=== PATIENT | female | born 1980 | race Caucasian/White ===

== ENCOUNTER 2017-10-10 13:00 | Outpatient (RCR) | payer OTHER, MEDICAID, SELFPAY ==
--- NOTE | 2017-09-03 15:15 | PT.OTN ---
On September 03, 2017 our therapy services consisting of Speech, Occupational, and Physical therapy transitioned from [employer] electronic documentation system to a new [employer] electronic system. All documentation prior to September 03 can be found under [employer] saved data. From September 03 forward, all medical record documentation will be in [employer]1.
--- NOTE | 2017-09-03 15:43 | PT.OTN ---
Physical Therapy Treatment Note PT-OP-C Subjective Start: 09/03/17 15:25 Freq: Status: Active Protocol: Activity Type Activity Date Activity User E-Sign Co-Sign Detail Recorded Client Recorded Date Recorded By Document 09/03/17 15:26 [facility] [email or web address] 09/03/17 15:42 [facility] 09/03/17 15:26 OP-PT Subjective [Patient Comments] -Patient Comments pain is rated 3 /10 now -Patient Reported Progress Improving PT-OP-Q Treatments Start: 09/03/17 15:25 Freq: Status: Active Protocol: Activity Type Activity Date Activity User E-Sign Co-Sign Detail Recorded Client Recorded Date Recorded By Document 09/03/17 15:26 [facility] [email or web address] 09/03/17 15:42 [facility] 09/03/17 15:26 Cardio Equipment [Upper Body Ergometer (UBE)] -Duration (Minutes) 5 Therapeutic Exercises [Supine Exercises] 1 -Supine Exercise Name hamstring and hip flexor stretch -Side bilateral -Reps/Minutes hold 1-2 minutes 1 rep each 2 -Supine Exercise Name AAROM shoulder flexion, ER -Side right [Sitting Exercises] 1 -Sitting Exercise Name seated shoulder marielos AAROM -Side right -Reps/Minutes 4 minutes [Standing Exercises] 2 -Standing Exercise Name standing bicep curls -Side bilateral -Reps/Minutes 3 # 2 sets of 10 reps 1 -Standing Exercise Name standing AAROM abduction, IR -Reps/Minutes 2 sets of 10 reps [Other Exercises] 1 -Other Exercise Name standing rows and lat pull down -Side right -Reps/Minutes 3 sets of 10 reps Manual Therapy Treatment [Manual Techniques] 1 -Type manual right shoulder ROM into flexion, DI/D2, IR/ER -Body Position Supine Self-Care/Home Management Treatment [Education] -Patient Education Home Exercise Program Posture PT-OP-R Modalities Start: 09/03/17 15:25 Freq: Status: Active Protocol: Activity Type Activity Date Activity User E-Sign Co-Sign Detail Recorded Client Recorded Date Recorded By Document 09/03/17 15:26 [facility] [email or web address] 09/03/17 15:42 [facility] 09/03/17 15:26 Hot Pack/Cold Pack [Treatment] Hot Pack -Patient Position Supine -Treatment Duration (minutes) 10 -Patient Tolerance Good -Comments heat pack to low back and right shoulder PT-OP-T Assessment and Plan Start: 09/03/17 15:25 Freq: Status: Active Protocol: Activity Type Activity Date Activity User E-Sign Co-Sign Detail Recorded Client Recorded Date Recorded By Document 09/03/17 15:26 [facility] [email or web address] 09/03/17 15:42 [facility] 09/03/17 15:26 Physical Therapy Assessment [Rehab Potential] -Rehabilitation Potential Excellent [Impairments] -Impairments Pain Posture ROM Strength [Progress Towards Goals] -Progress Towards Goals Progressing Toward Goals -Progress Comments excellent progress towards goals, pain levels decreased to 3/ 10 (was 8/10) and ROM and strength improvements [Assessment Summary] -Assessment Summer is making great progress in PT. Her shoulder ROM is greatly improved and today shoulder flexion was to 155 deg with AAROM, IR AAROM was to shoulder blade and PROM ER was to 45 deg. She has been able to tolerate bicep curls and theraband for scapula retraction. Physical Therapy Plan [Frequency and Duration] -Frequency of Treatment 2x/Week [Therapeutic Interventions] -Therapeutic Interventions Home Exercise Program Joint Mobilizations Manual Therapy Neuromuscular Re-education Patient/ Caregiver Education Self-Care/Home Management Soft Tissue Mobilization Therapeutic Exercises -Modalities Hot Packs Ultrasound [Next Visit Focus/Plan] -Next Visit Plan begin increasing strength and adding in resistance to IR/ER as well as flexibility exercises for the anterior chest Current Diagnoses Pain in right shoulder (09/03/17) Calcific tendinitis of right shoulder (09/03/17) Impingement syndrome of right shoulder (09/03/17)
--- NOTE | 2017-09-05 15:43 | PT.OTN ---
Current Diagnoses Pain in right shoulder (09/05/17) Calcific tendinitis of right shoulder (09/05/17) Impingement syndrome of right shoulder (09/05/17) Physical Therapy Treatment Note PT-OP-A Visit Information Start: 09/05/17 15:41 Freq: Status: Active Protocol: Activity Type Activity Date Activity User E-Sign Co-Sign Detail Recorded Client Recorded Date Recorded By Document 09/05/17 15:42 [facility] [email or web address] 09/05/17 15:43 [facility] 09/05/17 15:42 Out-Patient Physical Therapy Visit Information [Visit Information] -Visit Type Treatment Note -Visit Start Time 01:00 -Visit Stop Time 01:45 -Total Visit Minutes 45 -Visit Number 4 -Number of ACCOUNTING/FINANCE TUTOR Visits 0 PT-OP-C Subjective Start: 09/03/17 15:25 Freq: Status: Active Protocol: Activity Type Activity Date Activity User E-Sign Co-Sign Detail Recorded Client Recorded Date Recorded By Document 09/05/17 01:00 [facility] [email or web address] 09/05/17 15:41 [facility] 09/05/17 01:00 OP-PT Subjective [Patient Comments] -Patient Comments Summer reports pain continues to decrease in her shoulder and she is hoping to start increasing her strength now -Patient Reported Progress Improving PT-OP-Q Treatments Start: 09/03/17 15:25 Freq: Status: Active Protocol: Activity Type Activity Date Activity User E-Sign Co-Sign Detail Recorded Client Recorded Date Recorded By Document 09/05/17 01:00 [facility] [email or web address] 09/05/17 15:41 [facility] 09/05/17 01:00 Cardio Equipment [Upper Body Ergometer (UBE)] -Duration (Minutes) 5 Therapeutic Exercises [Supine Exercises] 1 -Supine Exercise Name hamstring and hip flexor stretch -Side bilateral -Reps/Minutes hold 1-2 minutes 1 rep each 2 -Supine Exercise Name AAROM shoulder flexion, ER -Side right [Sitting Exercises] 1 -Sitting Exercise Name seated shoulder marielos AAROM -Side right -Reps/Minutes 4 minutes [Standing Exercises] 2 -Standing Exercise Name standing bicep curls -Side bilateral -Reps/Minutes 3 # 2 sets of 10 reps 1 -Standing Exercise Name standing AAROM abduction, IR -Reps/Minutes 2 sets of 10 reps [Other Exercises] 2 -Other Exercise Name standing shoulder ER -Side right -Resistance level 1 theraband -Reps/Minutes 3 sets of 10 reps 1 -Other Exercise Name standing rows and lat pull down -Side right -Reps/Minutes 3 sets of 10 reps Manual Therapy Treatment [Manual Techniques] 1 -Type manual right shoulder ROM into flexion, DI/D2, IR/ER -Body Position Supine Self-Care/Home Management Treatment [Education] -Patient Education Home Exercise Program Posture PT-OP-R Modalities Start: 09/03/17 15:25 Freq: Status: Active Protocol: Activity Type Activity Date Activity User E-Sign Co-Sign Detail Recorded Client Recorded Date Recorded By Document 09/05/17 01:00 [facility] [email or web address] 09/05/17 15:41 [facility] 09/05/17 01:00 Hot Pack/Cold Pack [Treatment] Hot Pack -Patient Position Supine -Treatment Duration (minutes) 10 -Patient Tolerance Good -Comments heat pack to low back and right shoulder PT-OP-T Assessment and Plan Start: 09/03/17 15:25 Freq: Status: Active Protocol: Activity Type Activity Date Activity User E-Sign Co-Sign Detail Recorded Client Recorded Date Recorded By Document 09/05/17 01:00 [facility] [email or web address] 09/05/17 15:41 [facility] 09/05/17 01:00 Physical Therapy Assessment [Rehab Potential] -Rehabilitation Potential Excellent [Impairments] -Impairments Pain Posture ROM Strength [Progress Towards Goals] -Progress Towards Goals Progressing Toward Goals -Progress Comments excellent progress towards goals, pain levels decreased to 3/ 10 (was 8/10) and ROM and strength improvements [Assessment Summary] -Assessment Summer is making great progress in PT. Her shoulder ROM is greatly improved and today shoulder flexion was to 160 deg with AAROM, IR AAROM was to shoulder blade and PROM ER was to 45 deg. She has been able to tolerate bicep curls and theraband for scapula retraction. We added in shoulder ER today with theraband and this was tolerated well Physical Therapy Plan [Frequency and Duration] -Frequency of Treatment 2x/Week [Therapeutic Interventions] -Therapeutic Interventions Home Exercise Program Joint Mobilizations Manual Therapy Neuromuscular Re-education Patient/ Caregiver Education Self-Care/Home Management Soft Tissue Mobilization Therapeutic Exercises -Modalities Hot Packs Ultrasound [Next Visit Focus/Plan] -Next Visit Plan work on increasing strength and flexibility exercises for the anterior chest.
--- NOTE | 2017-09-10 14:26 | PT.OTN ---
Current Diagnoses Pain in right shoulder (09/10/17) Calcific tendinitis of right shoulder (09/10/17) Impingement syndrome of right shoulder (09/10/17) Physical Therapy Treatment Note PT-OP-A Visit Information Start: 09/05/17 15:41 Freq: Status: Active Protocol: Activity Type Activity Date Activity User E-Sign Co-Sign Detail Recorded Client Recorded Date Recorded By Document 09/10/17 14:15 [facility] [email or web address] 09/10/17 14:25 [facility] 09/10/17 14:15 Out-Patient Physical Therapy Visit Information [Visit Information] -Visit Type Treatment Note -Visit Start Time 01:00 -Visit Stop Time 01:45 -Total Visit Minutes 45 -Visit Number 5 -Number of [employer] Visits 0 PT-OP-C Subjective Start: 09/03/17 15:25 Freq: Status: Active Protocol: Activity Type Activity Date Activity User E-Sign Co-Sign Detail Recorded Client Recorded Date Recorded By Document 09/10/17 14:15 [facility] [email or web address] 09/10/17 14:25 [facility] 09/10/17 14:15 OP-PT Subjective [Patient Comments] -Patient Comments Summer reports her shoulder is doing better overall. She did sleep on it hard the past few nights and woke up in some pain -Patient Reported Progress Improving OP-PT Pain Assessment [Pain Assessment Grid] -Paper Pain Assessment Grid Completed 3 PT-OP-K Range of Motion Start: 09/03/17 15:25 Freq: Status: Active Protocol: Activity Type Activity Date Activity User E-Sign Co-Sign Detail Recorded Client Recorded Date Recorded By Document 09/10/17 14:15 [facility] [email or web address] 09/10/17 14:25 [facility] 09/10/17 14:15 Shoulder Goniometric Range of Motion [Shoulder] Measured in Degrees Right -Testing Position Sitting -Flexion 150 -Extension 10 -Abduction 110 -External Rotation at 45 degrees 45 Abduction -Internal Rotation 35 PT-OP-Q Treatments Start: 09/03/17 15:25 Freq: Status: Active Protocol: Activity Type Activity Date Activity User E-Sign Co-Sign Detail Recorded Client Recorded Date Recorded By Document 09/10/17 14:15 [facility] [email or web address] 09/10/17 14:25 [facility] 09/10/17 14:15 Cardio Equipment [Upper Body Ergometer (UBE)] -Duration (Minutes) 5 Therapeutic Exercises [Supine Exercises] 4 -Supine Exercise Name triceps skull crushers with bar only -Resistance bar only -Reps/Minutes 20 reps 3 -Supine Exercise Name T exercise with theraband -Equipment Used theraband -Reps/Minutes 3 sets of 10 reps 1 -Supine Exercise Name hamstring and hip flexor stretch -Side bilateral -Reps/Minutes hold 1-2 minutes 1 rep each 2 -Supine Exercise Name AAROM shoulder flexion, ER -Side right -Comments on half foam roll [Standing Exercises] 2 -Standing Exercise Name standing bicep curls -Side bilateral -Reps/Minutes 3 # 3 sets of 10 reps 1 -Standing Exercise Name standing AAROM abduction, IR -Reps/Minutes 2 sets of 10 reps [Other Exercises] 4 -Other Exercise Name quadraped opp arm lift 3 -Other Exercise Name quadraped cat cow and rock backs -Reps/Minutes 10 2 -Other Exercise Name standing shoulder ER -Side right -Resistance level 1 theraband -Reps/Minutes 3 sets of 10 reps 1 -Other Exercise Name standing rows and lat pull down -Side right -Reps/Minutes 3 sets of 10 reps Manual Therapy Treatment [Soft Tissue Mobilization] 1 -Body Location right biceps, deltoid, pectoralis -Mobilization Type Myofascial Release Rolling -Intensity/Depth Moderate -Body Position Supine [Manual Techniques] 1 -Type manual right shoulder ROM into flexion, DI/D2, IR/ER -Body Position Supine Self-Care/Home Management Treatment [Education] -Patient Education Home Exercise Program Posture PT-OP-R Modalities Start: 09/03/17 15:25 Freq: Status: Active Protocol: Activity Type Activity Date Activity User E-Sign Co-Sign Detail Recorded Client Recorded Date Recorded By Document 09/05/17 01:00 [facility] [email or web address] 09/05/17 15:41 [facility] 09/05/17 01:00 Hot Pack/Cold Pack [Treatment] Hot Pack -Patient Position Supine -Treatment Duration (minutes) 10 -Patient Tolerance Good -Comments heat pack to low back and right shoulder PT-OP-T Assessment and Plan Start: 09/03/17 15:25 Freq: Status: Active Protocol: Activity Type Activity Date Activity User E-Sign Co-Sign Detail Recorded Client Recorded Date Recorded By Document 09/10/17 14:15 [facility] [email or web address] 09/10/17 14:25 [facility] 09/10/17 14:15 Physical Therapy Assessment [Assessment Summary] -Assessment Milka continues to make good progress with PT. Her ROM into shoulder ER has improved greately and I have had her begin moving her shoulder into more abduction with this. Pain levels continue to decrease and Milka is tolerating resistance for Rotator cuff strengthening well. Physical Therapy Plan [Therapeutic Interventions] -Therapeutic Interventions Home Exercise Program Joint Mobilizations Manual Therapy Neuromuscular Re-education Patient/ Caregiver Education Self-Care/Home Management Soft Tissue Mobilization Therapeutic Exercises [Next Visit Focus/Plan] -Next Visit Plan work on increasing strength and flexibility exercises for the anterior chest.
--- NOTE | 2017-09-17 17:13 | PT.OTN ---
Current Diagnoses Pain in right shoulder (09/17/17) Calcific tendinitis of right shoulder (09/17/17) Impingement syndrome of right shoulder (09/17/17) Physical Therapy Treatment Note PT-OP-A Visit Information Start: 09/05/17 15:41 Freq: Status: Active Protocol: Document 09/17/17 16:57 [facility] (Rec: 09/17/17 17:09 [facility] [email or web address]) Out-Patient Physical Therapy Visit Information Visit Information Visit Type Treatment Note Visit Start Time 13:00 Visit Stop Time 13:45 Total Visit Minutes 50 Visit Number 6 Number of [employer] Visits 0 PT-OP-C Subjective Start: 09/03/17 15:25 Freq: Status: Active Protocol: Document 09/17/17 16:57 [facility] (Rec: 09/17/17 17:09 [facility] [email or web address]) OP-PT Subjective Patient Comments Patient Comments shoulder is a little sore today but Summer reports her back is hurting her worse PT-OP-K Range of Motion Start: 09/03/17 15:25 Freq: Status: Active Protocol: Document 09/10/17 14:15 [facility] (Rec: 09/10/17 14:25 [facility] [email or web address]) Shoulder Goniometric Range of Motion Shoulder Measured in Degrees Right Testing Position Sitting Flexion 150 Extension 10 Abduction 110 External Rotation at 45 degrees 45 Abduction Internal Rotation 35 PT-OP-Q Treatments Start: 09/03/17 15:25 Freq: Status: Active Protocol: Document 09/17/17 16:57 [facility] (Rec: 09/17/17 17:09 [facility] [email or web address]) Therapeutic Exercises Supine Exercises 4 Supine Exercise Name triceps skull crushers with bar only Resistance 20# Reps/Minutes 20 reps 3 Supine Exercise Name T exercise with theraband Equipment Used theraband Reps/Minutes 3 sets of 10 reps 1 Supine Exercise Name hamstring and hip flexor stretch Side bilateral Reps/Minutes hold 1-2 minutes 1 rep each 2 Supine Exercise Name AAROM shoulder flexion, ER Side right Comments on half foam roll Sitting Exercises 2 Sitting Exercise Name seated rows and lat pull down with resistance Resistance 10 # pounds Reps/Minutes 3 sets of 10 1 Sitting Exercise Name seated shoulder marielos AAROM Side right Reps/Minutes 4 minutes Standing Exercises 2 Standing Exercise Name standing bicep curls Side bilateral Reps/Minutes 3 # 3 sets of 10 reps 1 Standing Exercise Name standing AAROM abduction, IR Reps/Minutes 2 sets of 10 reps Other Exercises 4 Other Exercise Name quadraped opp arm lift 3 Other Exercise Name quadraped cat cow and rock backs Reps/Minutes 10 2 Other Exercise Name standing shoulder ER Side right Resistance level 1 theraband Reps/Minutes 3 sets of 10 reps Manual Therapy Treatment Manual Techniques 2 Type manual right sacral mobilizations into counter nutation Comments sacral counter nutation stretch 1 Type manual right shoulder ROM into flexion, DI/D2, IR/ER Body Position Supine PT-OP-R Modalities Start: 09/03/17 15:25 Freq: Status: Active Protocol: Document 09/05/17 01:00 [facility] (Rec: 09/05/17 15:41 [facility] [email or web address]) Hot Pack/Cold Pack Treatment Hot Pack Patient Position Supine Treatment Duration (minutes) 10 Patient Tolerance Good Comments heat pack to low back and right shoulder PT-OP-T Assessment and Plan Start: 09/03/17 15:25 Freq: Status: Active Protocol: Document 09/17/17 17:11 [facility] (Rec: 09/17/17 17:12 [facility] [email or web address]) Physical Therapy Assessment Assessment Summary Assessment Shoulder ROM is nearly full with end range stretch of ER and abduction. Strength is improving and Summer is tolerating additional weights Physical Therapy Plan Frequency and Duration Frequency of Treatment 2x/Week Therapeutic Interventions Therapeutic Interventions Home Exercise Program Joint Mobilizations Manual Therapy Neuromuscular Re-education Patient/Caregiver Education Self-Care/Home Management Soft Tissue Mobilization Therapeutic Exercises Next Visit Focus/Plan Next Visit Plan work on increasing strength and flexibility exercises for the anterior chest.
--- NOTE | 2017-09-19 16:21 | PT.OTN ---
Current Diagnoses Pain in right shoulder (09/19/17) Calcific tendinitis of right shoulder (09/19/17) Impingement syndrome of right shoulder (09/19/17) Physical Therapy Treatment Note PT-OP-A Visit Information Start: 09/05/17 15:41 Freq: Status: Active Protocol: Document 09/19/17 16:15 [facility] (Rec: 09/19/17 16:21 [facility] [email or web address]) Out-Patient Physical Therapy Visit Information Visit Information Visit Type Treatment Note Visit Start Time 13:45 Visit Stop Time 14:15 Total Visit Minutes 45 Visit Number 7 Number of [employer] Visits 0 PT-OP-C Subjective Start: 09/03/17 15:25 Freq: Status: Active Protocol: Document 09/19/17 16:15 [facility] (Rec: 09/19/17 16:21 [facility] [email or web address]) OP-PT Subjective Patient Comments Patient Comments 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 PT-OP-K Range of Motion Start: 09/03/17 15:25 Freq: Status: Active Protocol: Document 09/19/17 16:15 [facility] (Rec: 09/19/17 16:21 [facility] [email or web address]) Shoulder Goniometric Range of Motion Shoulder Measured in Degrees Right Testing Position Sitting Flexion 160 Extension 10 Abduction 140 External Rotation at 45 degrees 45 Abduction Internal Rotation 30 PT-OP-Q Treatments Start: 09/03/17 15:25 Freq: Status: Active Protocol: Document 09/19/17 16:15 [facility] (Rec: 09/19/17 16:21 [facility] [email or web address]) Cardio Equipment Upper Body Ergometer (UBE) Duration (Minutes) 5 RPM 120 Therapeutic Exercises Supine Exercises 3 Supine Exercise Name T exercise with theraband Equipment Used theraband Reps/Minutes 3 sets of 10 reps 1 Supine Exercise Name hamstring and hip flexor stretch Side bilateral Reps/Minutes hold 1-2 minutes 1 rep each 2 Supine Exercise Name AAROM shoulder flexion, ER Side right Comments on half foam roll Sitting Exercises 2 Sitting Exercise Name seated rows and lat pull down with resistance Resistance 10 # pounds Reps/Minutes 3 sets of 10 1 Sitting Exercise Name seated shoulder marielos AAROM Side right Reps/Minutes 4 minutes Other Exercises 3 Other Exercise Name quadraped cat cow and rock backs Reps/Minutes 10 Manual Therapy Treatment Manual Techniques 2 Type manual right sacral mobilizations into counter nutation Comments sacral counter nutation stretch PT-OP-R Modalities Start: 09/03/17 15:25 Freq: Status: Active Protocol: Document 09/05/17 01:00 [facility] (Rec: 09/05/17 15:41 [facility] [email or web address]) Hot Pack/Cold Pack Treatment Hot Pack Patient Position Supine Treatment Duration (minutes) 10 Patient Tolerance Good Comments heat pack to low back and right shoulder PT-OP-T Assessment and Plan Start: 09/03/17 15:25 Freq: Status: Active Protocol: Document 09/19/17 16:15 [facility] (Rec: 09/19/17 16:21 [facility] [email or web address]) Physical Therapy Plan Frequency and Duration Frequency of Treatment 2x/Week Therapeutic Interventions Therapeutic Interventions Home Exercise Program Joint Mobilizations Manual Therapy Neuromuscular Re-education Patient/Caregiver Education Self-Care/Home Management Soft Tissue Mobilization Therapeutic Exercises Next Visit Focus/Plan Next Visit Plan work on increasing strength and flexibility exercises for the anterior chest.
--- NOTE | 2017-09-27 06:25 | PT.OTN ---
Current Diagnoses Pain in right shoulder (09/26/17) Calcific tendinitis of right shoulder (09/26/17) Impingement syndrome of right shoulder (09/26/17) Physical Therapy Treatment Note PT-OP-A Visit Information Start: 09/05/17 15:41 Freq: Status: Active Protocol: Document 09/27/17 06:18 [facility] (Rec: 09/27/17 06:25 [facility] [email or web address]) Out-Patient Physical Therapy Visit Information Visit Information Visit Type Treatment Note Visit Start Time 13:00 Visit Stop Time 13:45 Total Visit Minutes 45 Visit Number 8 Number of FOREIGN FOOD COOK SPECIALTY Visits 0 PT-OP-C Subjective Start: 09/03/17 15:25 Freq: Status: Active Protocol: Document 09/27/17 06:18 [facility] (Rec: 09/27/17 06:25 [facility] [email or web address]) OP-PT Subjective Patient Comments Patient Comments Summer reports her shoulder is doing much better overall but her low back is sore today PT-OP-K Range of Motion Start: 09/03/17 15:25 Freq: Status: Active Protocol: Document 09/19/17 16:15 [facility] (Rec: 09/19/17 16:21 [facility] [email or web address]) Shoulder Goniometric Range of Motion Shoulder Measured in Degrees Right Testing Position Sitting Flexion 160 Extension 10 Abduction 140 External Rotation at 45 degrees 45 Abduction Internal Rotation 30 PT-OP-Q Treatments Start: 09/03/17 15:25 Freq: Status: Active Protocol: Document 09/27/17 06:18 [facility] (Rec: 09/27/17 06:25 [facility] [email or web address]) Cardio Equipment Upper Body Ergometer (UBE) Duration (Minutes) 5 RPM 120 Therapeutic Exercises Supine Exercises 4 Supine Exercise Name triceps skull crushers with bar only Resistance 20# Reps/Minutes 20 reps 3 Supine Exercise Name T exercise with theraband Equipment Used theraband Reps/Minutes 3 sets of 10 reps 1 Supine Exercise Name hamstring and hip flexor stretch Side bilateral Reps/Minutes hold 1-2 minutes 1 rep each 2 Supine Exercise Name AAROM shoulder flexion, ER Side right Comments on half foam roll Sitting Exercises 2 Sitting Exercise Name seated rows and lat pull down with resistance Resistance 10 # pounds Reps/Minutes 3 sets of 10 1 Sitting Exercise Name seated shoulder marielos AAROM Side right Reps/Minutes 4 minutes Other Exercises 5 Other Exercise Name aaliyah pose Reps/Minutes hold 1-2 minutes 4 Other Exercise Name quadraped opp arm lift 3 Other Exercise Name quadraped cat cow and rock backs Reps/Minutes 10 PT-OP-R Modalities Start: 09/03/17 15:25 Freq: Status: Active Protocol: Document 09/05/17 01:00 [facility] (Rec: 09/05/17 15:41 [facility] [email or web address]) Hot Pack/Cold Pack Treatment Hot Pack Patient Position Supine Treatment Duration (minutes) 10 Patient Tolerance Good Comments heat pack to low back and right shoulder PT-OP-T Assessment and Plan Start: 09/03/17 15:25 Freq: Status: Active Protocol: Document 09/27/17 06:18 [facility] (Rec: 09/27/17 06:25 [facility] [email or web address]) Physical Therapy Assessment Assessment Summary Assessment Shoulder ROM and strength much improved. Summer is complaining of back pain that she feels is worse than her shoulder at this time Physical Therapy Plan Frequency and Duration Frequency of Treatment 2x/Week Therapeutic Interventions Therapeutic Interventions Home Exercise Program Joint Mobilizations Manual Therapy Neuromuscular Re-education Patient/Caregiver Education Self-Care/Home Management Soft Tissue Mobilization Therapeutic Exercises Next Visit Focus/Plan Next Visit Plan reassess shoulder strength and send [place] to MD Please Sign and Return: I have reviewed this Plan of Care and certify that the skilled therapy services above are required to meet the patient???s needs. Physician Signature Date Printed Name and Credentials Clinical Instructor Signature Printed Name and Credentials
--- NOTE | 2017-10-08 17:36 | PT.OTN ---
Current Diagnoses Pain in right shoulder (10/08/17) Calcific tendinitis of right shoulder (10/08/17) Impingement syndrome of right shoulder (10/08/17) Physical Therapy Treatment Note PT-OP-A Visit Information Start: 09/05/17 15:41 Freq: Status: Active Protocol: Document 10/08/17 17:31 [facility] (Rec: 10/08/17 17:36 [facility] [email or web address]) Out-Patient Physical Therapy Visit Information Visit Information Visit Type Treatment Note Visit Start Time 13:00 Visit Stop Time 13:45 Total Visit Minutes 45 Visit Number 9 Number of TEXTILE TECHNOLOGIST Visits 0 PT-OP-C Subjective Start: 09/03/17 15:25 Freq: Status: Active Protocol: Document 10/08/17 17:31 [facility] (Rec: 10/08/17 17:36 [facility] [email or web address]) OP-PT Subjective Patient Comments Patient Comments Overall the shoulder is doing much better and ROM has improved. Discomfort in the AM at times if I have slept on my shoulder all night PT-OP-K Range of Motion Start: 09/03/17 15:25 Freq: Status: Active Protocol: Document 09/19/17 16:15 [facility] (Rec: 09/19/17 16:21 [facility] [email or web address]) Shoulder Goniometric Range of Motion Shoulder Measured in Degrees Right Testing Position Sitting Flexion 160 Extension 10 Abduction 140 External Rotation at 45 degrees 45 Abduction Internal Rotation 30 PT-OP-Q Treatments Start: 09/03/17 15:25 Freq: Status: Active Protocol: Document 10/08/17 17:31 [facility] (Rec: 10/08/17 17:36 [facility] [email or web address]) Therapeutic Exercises Supine Exercises 4 Supine Exercise Name triceps kick backs Resistance 5 # Reps/Minutes 20 reps 3 Supine Exercise Name T exercise with theraband Equipment Used theraband Reps/Minutes 3 sets of 10 reps 1 Supine Exercise Name hamstring and hip flexor stretch Side bilateral Reps/Minutes hold 1-2 minutes 1 rep each 2 Supine Exercise Name AAROM shoulder flexion, ER Side right Comments on half foam roll Prone Exercises 1 Prone Exercise Name prone shoulder horizontal abduction Reps/Minutes 3 sets of 10 reps Sidelying Exercises 1 Sidelying Exercise Name sidelying ER Resistance 3# Reps/Minutes 3 sets 10 reps Sitting Exercises 2 Sitting Exercise Name seated rows and lat pull down with resistance Resistance 10 # pounds Reps/Minutes 3 sets of 10 1 Sitting Exercise Name seated shoulder marielos AAROM Side right Reps/Minutes 4 minutes Manual Therapy Treatment Manual Techniques 2 Type manual right sacral mobilizations into counter nutation Comments sacral counter nutation stretch 1 Type manual right shoulder ROM into flexion, DI/D2, IR/ER Body Position Supine PT-OP-R Modalities Start: 09/03/17 15:25 Freq: Status: Active Protocol: Document 09/05/17 01:00 [facility] (Rec: 09/05/17 15:41 [facility] [email or web address]) Hot Pack/Cold Pack Treatment Hot Pack Patient Position Supine Treatment Duration (minutes) 10 Patient Tolerance Good Comments heat pack to low back and right shoulder PT-OP-T Assessment and Plan Start: 09/03/17 15:25 Freq: Status: Active Protocol: Document 10/08/17 17:31 [facility] (Rec: 10/08/17 17:36 [facility] [email or web address]) Physical Therapy Assessment Assessment Summary Assessment full ROM of the right shoulder today and good tolerance of ther ex for shoulder stabilization Physical Therapy Plan Frequency and Duration Frequency of Treatment 2x/Week Therapeutic Interventions Therapeutic Interventions Home Exercise Program Joint Mobilizations Manual Therapy Neuromuscular Re-education Patient/Caregiver Education Self-Care/Home Management Soft Tissue Mobilization Therapeutic Exercises Next Visit Focus/Plan Next Visit Plan send ME to MD regarding shoulder strength and improved ROM Please Sign and Return: I have reviewed this Plan of Care and certify that the skilled therapy services above are required to meet the patient?s needs. Physician Signature Date Printed Name and Credentials Clinical Instructor Signature Printed Name and Credentials
--- NOTE | 2017-10-13 20:44 | PT.OPPN ---
Current Diagnoses Pain in right shoulder (10/10/17) Calcific tendinitis of right shoulder (10/10/17) Impingement syndrome of right shoulder (10/10/17) Physical Therapy Progress Note PT-OP-A Visit Information Start: 09/05/17 15:41 Freq: Status: Active Protocol: Document 10/10/17 13:00 [facility] (Rec: 10/13/17 20:40 [facility] [email or web address]) Out-Patient Physical Therapy Visit Information Visit Information Visit Type Progress Note Visit Start Time 13:00 Visit Stop Time 13:45 Total Visit Minutes 45 Visit Number 10 Number of SENIOR CUSTOMER SERVICE REPRESENTATIVE Visits 0 Evaluation Information Evaluation Date 08/20/17 PT-OP-C Subjective Start: 09/03/17 15:25 Freq: Status: Active Protocol: Document 10/10/17 13:00 [facility] (Rec: 10/13/17 20:40 [facility] [email or web address]) OP-PT Subjective Patient Comments Patient Comments Milka reports that overall her shoulder is doing much better and she is ready to begin working on her low back which is giving her more pain currently PT-OP-J Posture/Palpation/Skin Start: 10/13/17 20:41 Freq: Status: Active Protocol: Document 10/13/17 20:42 [facility] (Rec: 10/13/17 20:44 [facility] [email or web address]) Posture Evaluation Position Standing L-Spine Posture Increased Lordosis Pelvis Posture Anteriorly Tilted (R) Rotated Anterior (L) PSIS Posterior Weight Distribution Weight Shifted Right Palpation Assessment Location One Palpation Location Lumbar spine paraspinals and gluteal region Palpation Findings Soft Tissue Tightness Spasm Muscle Guarding Tenderness PT-OP-K Range of Motion Start: 09/03/17 15:25 Freq: Status: Active Protocol: Document 10/10/17 13:00 [facility] (Rec: 10/13/17 20:40 [facility] [email or web address]) Shoulder Goniometric Range of Motion Shoulder Measured in Degrees Right Testing Position Sitting Flexion 160 Extension 10 Abduction 150 External Rotation at 90 degrees 70 Abduction External Rotation at 45 degrees 60 Abduction Internal Rotation 55 PT-OP-M Strength Start: 10/13/17 20:41 Freq: Status: Active Protocol: Document 10/13/17 20:42 [facility] (Rec: 10/13/17 20:44 [facility] [email or web address]) Trunk Strength Trunk Manual Muscle Testing Testing Position Supine Flexion 3+ Fair+ Extension 3+ Fair+ Core Stabilization Poor core stabilization with + ASLR test bilaterally PT-OP-T Assessment and Plan Start: 09/03/17 15:25 Freq: Status: Active Protocol: Document 10/10/17 13:00 [facility] (Rec: 10/13/17 20:40 [facility] [email or web address]) Physical Therapy Assessment Goals Three Impairment Impaired posture with an increase in lumbar lordosis in standing Short Term Goal (STG) Milka will be educated in postural modifications to decrease the exaggerated lumbar lordosis she stands in and improve support of her lumbar spine STG Duration 6 weeks Two Impairment Decreased core strength and SI joint stabilization [facility]ci Goal (LTG) Milka is instructed in a home exercise program for low back stabilization and SI joint stabilization LTG Duration 8 weeks One Impairment low back pain rated 8/10 Pig Machine Operator Goal (LTG) Begin workin ike a low back stabilization program to minimize back pain LTG Duration 8 weeks Progress Towards Goals Progress Towards Goals Progressing Toward Goals Assessment Summary Assessment Milka has made great overall progress with her right shoulder with Physical therapy and surgery. She is close to having a full pain free ROM, her strength is improving and pain levels have decreased overall. She will be progressing to a home program for her shoulder. When Milka initially began therapy she brought in a referral for her shoulder and her back. Treatment has focused on her shoulder and will now progress to her lumbar spine under her primary care physician Andrea Cross. Physical Therapy Plan Frequency and Duration Frequency of Treatment 2x/Week Duration of Treatment 8 weeks Plan of Care Start Date 10/10/17 Plan of Care End Date 12/05/17 Therapeutic Interventions Therapeutic Interventions Home Exercise Program Joint Mobilizations Manual Therapy Neuromuscular Re-education Patient/Caregiver Education Self-Care/Home Management Soft Tissue Mobilization Therapeutic Exercises Modalities Cold Pack/Ice Massage Traction- Mechanical Next Visit Focus/Plan Next Visit Plan progress abdominal stabilization and postural modifications
--- NOTE | 2017-10-13 20:45 | PT.OPPOC ---
Current Diagnoses Pain in right shoulder (10/10/17) Calcific tendinitis of right shoulder (10/10/17) Impingement syndrome of right shoulder (10/10/17) Provider Visit Care Team Role Provider Type PHIL Luis Family Provider Non-Staff Primary Care Provider Specialty: Medical Address: [address], [id number] Email: Kody Newby Attending Provider Non-Staff Specialty: Medical Address: [address] [place] [address], [id number] Email: Plan Of Care PT-OP-T Assessment and Plan Start: 09/03/17 15:25 Freq: Status: Active Protocol: Document 10/10/17 13:00 [facility] (Rec: 10/13/17 20:40 [facility] [email or web address]) Physical Therapy Assessment Goals Three Impairment Impaired posture with an increase in lumbar lordosis in standing Short Term Goal (STG) Milka will be educated in postural modifications to decrease the exaggerated lumbar lordosis she stands in and improve support of her lumbar spine STG Duration 6 weeks Two Impairment Decreased core strength and SI joint stabilization Intermediate Goal (LTG) Milka is instructed in a home exercise program for low back stabilization and SI joint stabilization LTG Duration 8 weeks One Impairment low back pain rated 8/10 Finger Cobbler Goal (LTG) Begin workin ike a low back stabilization program to minimize back pain LTG Duration 8 weeks Progress Towards Goals Progress Towards Goals Progressing Toward Goals Assessment Summary Assessment Milka has made great overall progress with her right shoulder with Physical therapy and surgery. She is close to having a full pain free ROM, her strength is improving and pain levels have decreased overall. She will be progressing to a home program for her shoulder. When Milka initially began therapy she brought in a referral for her shoulder and her back. Treatment has focused on her shoulder and will now progress to her lumbar spine under her primary care physician Andrea Cross. Physical Therapy Plan Frequency and Duration Frequency of Treatment 2x/Week Duration of Treatment 8 weeks Plan of Care Start Date 10/10/17 Plan of Care End Date 12/05/17 Therapeutic Interventions Therapeutic Interventions Home Exercise Program Joint Mobilizations Manual Therapy Neuromuscular Re-education Patient/Caregiver Education Self-Care/Home Management Soft Tissue Mobilization Therapeutic Exercises Modalities Cold Pack/Ice Massage Traction- Mechanical Next Visit Focus/Plan Next Visit Plan progress abdominal stabilization and postural modifications Plan of Care Dates Plan of Care Start Date 10/10/17 Plan of Care End Date 12/05/17 Please Sign and Return: I have reviewed this Plan of Care and certify that the skilled therapy services above are required to meet the patient?s needs. Physician Signature Date Printed Name and Credentials Clinical Instructor Signature Printed Name and Credentials
--- NOTE | 2017-10-13 20:47 | PT.OTN ---
Current Diagnoses Pain in right shoulder (10/10/17) Calcific tendinitis of right shoulder (10/10/17) Impingement syndrome of right shoulder (10/10/17) Physical Therapy Treatment Note PT-OP-A Visit Information Start: 09/05/17 15:41 Freq: Status: Active Protocol: Document 10/10/17 13:00 [facility] (Rec: 10/13/17 20:40 [facility] [email or web address]) Out-Patient Physical Therapy Visit Information Visit Information Visit Type Progress Note Visit Start Time 13:00 Visit Stop Time 13:45 Total Visit Minutes 45 Visit Number 10 Number of CONSTRUCTION CONSULTANT Visits 0 Evaluation Information Evaluation Date 08/20/17 PT-OP-C Subjective Start: 09/03/17 15:25 Freq: Status: Active Protocol: Document 10/10/17 13:00 [facility] (Rec: 10/13/17 20:40 [facility] [email or web address]) OP-PT Subjective Patient Comments Patient Comments Milka reports that overall her shoulder is doing much better and she is ready to begin working on her low back which is giving her more pain currently PT-OP-J Posture/Palpation/Skin Start: 10/13/17 20:41 Freq: Status: Active Protocol: Document 10/13/17 20:42 [facility] (Rec: 10/13/17 20:44 [facility] [email or web address]) Posture Evaluation Position Standing L-Spine Posture Increased Lordosis Pelvis Posture Anteriorly Tilted (R) Rotated Anterior (L) PSIS Posterior Weight Distribution Weight Shifted Right Palpation Assessment Location One Palpation Location Lumbar spine paraspinals and gluteal region Palpation Findings Soft Tissue Tightness Spasm Muscle Guarding Tenderness PT-OP-K Range of Motion Start: 09/03/17 15:25 Freq: Status: Active Protocol: Document 10/10/17 13:00 [facility] (Rec: 10/13/17 20:40 [facility] [email or web address]) Shoulder Goniometric Range of Motion Shoulder Measured in Degrees Right Testing Position Sitting Flexion 160 Extension 10 Abduction 150 External Rotation at 90 degrees 70 Abduction External Rotation at 45 degrees 60 Abduction Internal Rotation 55 PT-OP-M Strength Start: 10/13/17 20:41 Freq: Status: Active Protocol: Document 10/13/17 20:42 [facility] (Rec: 10/13/17 20:44 [facility] [email or web address]) Trunk Strength Trunk Manual Muscle Testing Testing Position Supine Flexion 3+ Fair+ Extension 3+ Fair+ Core Stabilization Poor core stabilization with + ASLR test bilaterally PT-OP-Q Treatments Start: 09/03/17 15:25 Freq: Status: Active Protocol: Document 10/10/17 13:00 [facility] (Rec: 10/13/17 20:40 [facility] [email or web address]) Therapeutic Exercises Supine Exercises 4 Supine Exercise Name triceps kick backs Resistance 5 # Reps/Minutes 20 reps 3 Supine Exercise Name T exercise with theraband Equipment Used theraband Reps/Minutes 3 sets of 10 reps 1 Supine Exercise Name hamstring and hip flexor stretch Side bilateral Reps/Minutes hold 1-2 minutes 1 rep each 2 Supine Exercise Name AAROM shoulder flexion, ER Side right Comments on half foam roll Prone Exercises 1 Prone Exercise Name prone shoulder horizontal abduction Reps/Minutes 3 sets of 10 reps Sidelying Exercises 1 Sidelying Exercise Name sidelying ER Resistance 3# Reps/Minutes 3 sets 10 reps Sitting Exercises 2 Sitting Exercise Name seated rows and lat pull down with resistance Resistance 10 # pounds Reps/Minutes 3 sets of 10 1 Sitting Exercise Name seated shoulder marielos AAROM Side right Reps/Minutes 4 minutes Standing Exercises 2 Standing Exercise Name standing Serratus anterior wall pres Reps/Minutes 2 sets of 10 reps Other Exercises 4 Other Exercise Name quadraped opp arm lift Manual Therapy Treatment Manual Techniques 1 Type manual right shoulder ROM into flexion, DI/D2, IR/ER Body Position Supine PT-OP-R Modalities Start: 09/03/17 15:25 Freq: Status: Active Protocol: Document 10/13/17 20:40 [facility] (Rec: 10/13/17 20:41 [facility] [email or web address]) Spinal Traction Traction Treatment Lumbar Method Mechanical Static Patient Position Hooklying Force Applied (Pounds) 50 Duration of Treatment (Minutes) 12 Heating Pad Applied No Traction Treatment Comment Summer tolerated tx well PT-OP-T Assessment and Plan Start: 09/03/17 15:25 Freq: Status: Active Protocol: Document 10/10/17 13:00 [facility] (Rec: 10/13/17 20:40 [facility] [email or web address]) Physical Therapy Assessment Goals Three Impairment Impaired posture with an increase in lumbar lordosis in standing Short Term Goal (STG) Summer will be educated in postural modifications to decrease the exaggerated lumbar lordosis she stands in and improve support of her lumbar spine STG Duration 6 weeks Two Impairment Decreased core strength and SI joint stabilization Penitentiary Goal (LTG) Summer is instructed in a home exercise program for low back stabilization and SI joint stabilization LTG Duration 8 weeks One Impairment low back pain rated 8/10 Penitentiary Goal (LTG) Begin workin ike a low back stabilization program to minimize back pain LTG Duration 8 weeks Progress Towards Goals Progress Towards Goals Progressing Toward Goals Assessment Summary Assessment Milka has made great overall progress with her right shoulder with Physical therapy and surgery. She is close to having a full pain free ROM, her strength is improving and pain levels have decreased overall. She will be progressing to a home program for her shoulder. When Milka initially began therapy she brought in a referral for her shoulder and her back. Treatment has focused on her shoulder and will now progress to her lumbar spine under her primary care physician Andrea Cross. Physical Therapy Plan Frequency and Duration Frequency of Treatment 2x/Week Duration of Treatment 8 weeks Plan of Care Start Date 10/10/17 Plan of Care End Date 12/05/17 Therapeutic Interventions Therapeutic Interventions Home Exercise Program Joint Mobilizations Manual Therapy Neuromuscular Re-education Patient/Caregiver Education Self-Care/Home Management Soft Tissue Mobilization Therapeutic Exercises Modalities Cold Pack/Ice Massage Traction- Mechanical Next Visit Focus/Plan Next Visit Plan progress abdominal stabilization and postural modifications Please Sign and Return: I have reviewed this Plan of Care and certify that the skilled therapy services above are required to meet the patient?s needs. Physician Signature Date Printed Name and Credentials Clinical Instructor Signature Printed Name and Credentials
--- NOTE | 2017-11-19 18:18 | PT.OPDS ---
Current Diagnoses Pain in right shoulder (10/10/17) Calcific tendinitis of right shoulder (10/10/17) Impingement syndrome of right shoulder (10/10/17) Provider Visit Care Team Role Provider Type PHIL Luis Attending Provider Non-Staff Family Provider Primary Care Provider Specialty: Medical Address: [address] [place] [address], [phone] Email: Visit Number Visit Number 10 Discharge Summary PT-OP-C Subjective Start: 09/03/17 15:25 Freq: Status: Active Protocol: Document 10/10/17 13:00 [facility] (Rec: 10/13/17 20:40 [facility] [email or web address]) OP-PT Subjective Patient Comments Patient Comments Summer reports that overall her shoulder is doing much better and she is ready to begin working on her low back which is giving her more pain currently PT-OP-J Posture/Palpation/Skin Start: 10/13/17 20:41 Freq: Status: Active Protocol: Document 10/13/17 20:42 [facility] (Rec: 10/13/17 20:44 [facility] [email or web address]) Posture Evaluation Position Standing L-Spine Posture Increased Lordosis Pelvis Posture Anteriorly Tilted (R) Rotated Anterior (L) PSIS Posterior Weight Distribution Weight Shifted Right Palpation Assessment Location One Palpation Location Lumbar spine paraspinals and gluteal region Palpation Findings Soft Tissue Tightness Spasm Muscle Guarding Tenderness PT-OP-K Range of Motion Start: 09/03/17 15:25 Freq: Status: Active Protocol: Document 10/10/17 13:00 [facility] (Rec: 10/13/17 20:40 [facility] [email or web address]) Shoulder Goniometric Range of Motion Shoulder Measured in Degrees Right Testing Position Sitting Flexion 160 Extension 10 Abduction 150 External Rotation at 90 degrees 70 Abduction External Rotation at 45 degrees 60 Abduction Internal Rotation 55 PT-OP-M Strength Start: 10/13/17 20:41 Freq: Status: Active Protocol: Document 10/13/17 20:42 [facility] (Rec: 10/13/17 20:44 [facility] [email or web address]) Trunk Strength Trunk Manual Muscle Testing Testing Position Supine Flexion 3+ Fair+ Extension 3+ Fair+ Core Stabilization Poor core stabilization with + ASLR test bilaterally PT-OP-T Assessment and Plan Start: 05/01/18 15:25 Freq: Status: Active Protocol: Document 11/19/17 18:17 [facility] (Rec: 11/19/17 18:18 [facility] [email or web address]) Physical Therapy Assessment Progress Towards Goals Progress Towards Goals Progressing Toward Goals Assessment Summary Assessment Milka has made great overall progress with her right shoulder with Physical therapy and surgery. She is close to having a full pain free ROM, her strength is improving and pain levels have decreased overall. She will be progressing to a home program for her shoulder. Physical Therapy Plan Discharge Physical Therapy Discharge Reasons No Longer Attending PT Discharge Comments Milka has completed her PT for her shoulder. She did not return to PT for further evaluation of her lumbar spine at this time.
== END 2017-12-09 11:11 ==
LOC: PHYS 13:00
PROVIDERS: Family Provider Nurse Practitioner; PCP Nurse Practitioner; Visit Provider Nurse Practitioner
DX: M25.511 Pain in right shoulder (principal); M75.31 Calcific tendinitis of right shoulder; M75.41 Impingement syndrome of right shoulder
CPT/HCPCS: 97010; 97110; 97140

== ENCOUNTER → 2018-09-30 15:21 | Outpatient (CLI) | payer OTHER, MEDICAID, SELFPAY ==
--- NOTE | 2018-09-30 | DI.RAD.S_ITS ---
PROCEDURE: XR THORACIC SPINE 3V INDICATIONS: CERVICALGIA,DORSALGIA TECHNIQUE: 3 views of the thoracic spine were acquired. COMPARISON: [facility], , THORACIC SPINE 3 VIEWS, 09/19/2015, 11:24. FINDINGS: Bones: No fractures or dislocations. No suspicious bony lesions. 12 pairs of ribs are noted, and appear intact where visualized. Soft tissues: No paravertebral stripe thickening. IMPRESSION: Minimal degenerative disc disease is seen along the middle and lower thirds of the thoracic spine as was previously the case in September of 2015. There may be a slight degree of interval disc height reduction at the middle third of the thoracic spine but no trauma. No compression fracture found. Dictated by: Pradip Fay M.D. on 09/30/2018 at 16:35 Approved by: Pradip Fay M.D. on 09/30/2018 at 16:36
--- NOTE | 2018-09-30 | DI.RAD.S_ITS ---
PROCEDURE: XR CERVICAL SPINE 2V OR 3V INDICATIONS: CERVICALGIA,DORSALGIA TECHNIQUE: 3 view(s) of the cervical spine were acquired. COMPARISON: [facility], CERVICAL SPINE 2 OR 3 VIEWS, 09/19/2015, 11:24. FINDINGS: Bones: No fractures or dislocations to the T1 level. The lateral masses of C1 appear intact on the odontoid view. No suspicious bony lesions. Soft tissues: No prevertebral soft tissue swelling. IMPRESSION: Minimal disc height reduction is noted at C5-6, without subluxation or osteophyte formation. No trauma found. Dictated by: Pradip Fay M.D. on 09/30/2018 at 16:36 Approved by: Pradip Fay M.D. on 09/30/2018 at 16:36
== END ==
PROVIDERS: Family Provider Nurse Practitioner; PCP Nurse Practitioner; Visit Provider Nurse Practitioner
DX: M54.2 Cervicalgia (principal); M54.9 Dorsalgia, unspecified
CPT/HCPCS: 72040; 72072

== ENCOUNTER 2019-02-19 10:30 | Outpatient (RCR) | payer OTHER, MEDICAID, SELFPAY ==
--- NOTE | 2019-02-11 12:26 | PT.OIE ---
Current Diagnoses Other intervertebral disc displacement, lumbar region (02/17/19) Radiculopathy, lumbar region (02/17/19) Visit Care Team Role Provider Type PHIL Luis Family Provider Non-Staff Primary Care Provider Specialty: Medical Address: [address], [id number] Email: CHRIS Lang Attending Provider Non-Staff Specialty: Medical Address: [address] [place] [address], [address], [place], [address] Email: Physical Therapy Initial Evaluation PT-OP-C Subjective Start: 02/11/19 10:00 Freq: Status: Active Protocol: Document 02/11/19 10:00 [facility] (Rec: 02/16/19 17:04 [facility] [email or web address]) OP-PT Subjective Patient Comments Patient Comments pt complains of sacral pain and reports she has to sit at the edge of her chair to help with pain Patient Questionnaires Oswestry Low Back Index Oswestry Score 26 Oswestry Impairment 20 to 39% Impaired (Score 20- 39) OP-PT Pain Assessment Pain Assessment Grid Paper Pain Assessment Grid Completed Yes Location B LBP Pain Location Details pain located B Lumbar spine and referred down the posterior LE to the knee Intensity 7 Scale Used Numeric (1 - 10) PT-OP-F Manual Assessment Start: 02/11/19 10:00 Freq: Status: Active Protocol: Document 02/11/19 10:00 [facility] (Rec: 02/16/19 17:04 [facility] [email or web address]) Manual Assessments Soft Tissue Assessment Soft Tissue Mobility Assessment tightness B piriformis, Right iliopsoas Joint Mobility Assessment Joint Mobility Assessment sacrum held in nuration and sacral torsion to the right + standing july and Summer has to hike up her right pelvis to move her hip Other Manual Assessments Other Manual Assessments hypermobility throughout all her joints in the LE and pelvis, right leg longer than left in supine PT-OP-J Posture/Palpation/Skin Start: 02/11/19 10:00 Freq: Status: Active Protocol: Document 02/11/19 10:00 [facility] (Rec: 02/16/19 17:04 [facility] [email or web address]) Posture Evaluation Position Standing Evaluation View Posterior L-Spine Posture Increased Lordosis Comments Posture Comments the patient is standing with increased lordosis and is shifted forward with this arch as well as shifted to the left PT-OP-K Range of Motion Start: 02/11/19 10:00 Freq: Status: Active Protocol: Document 02/11/19 10:00 [facility] (Rec: 02/16/19 17:04 [facility] [email or web address]) Lumbar Spine Range of Motion Lumbar Spine Active Testing Position Standing Flexion 50 Extension 0 Rotation Left 30 Rotation Right 30 Lateral Flexion Left 10 Lateral Flexion Right 5 ROM Limitations Soft Tissue Tightness,Muscle Tone,Pain Comments pt is already standing in increased lubmar extension. She has pain with increased extension. There is very limited lumbar flexion noted, it all comes from the thoracic spine. PT-OP-L Special Tests Start: 02/11/19 10:00 Freq: Status: Active Protocol: Document 02/11/19 10:00 [facility] (Rec: 02/16/19 17:06 [facility] [email or web address]) Special Tests Lumbar Spine Special Tests Other- 1 Test Results + standing july test for right sided SI dysfunction Comments pt has to hike the whole pelvis to lift right hip in standing Straight Leg Raise Test Results + left side Comments increases left sided radicular symptoms Standing Flexion Test Results + Comments increases pain PT-OP-M Strength Start: 02/11/19 10:00 Freq: Status: Active Protocol: Document 02/11/19 10:00 [facility] (Rec: 02/17/19 12:25 [facility] [email or web address]) Hip Strength Hip Manual Muscle Testing Left Flexion (L2) 4 Good External Rotation 4 Good Right Flexion (L2) 3+ Fair+ External Rotation 4 Good PT-OP-Q Treatments Start: 02/11/19 10:00 Freq: Status: Active Protocol: Document 02/11/19 10:00 [facility] (Rec: 02/16/19 16:49 [facility] [email or web address]) Manual Therapy Treatment Soft Tissue Mobilization 1 Body Location MFR over bilateral lumbar sacral region Mobilization Type Myofascial Release Body Position Prone Joint Mobilizations 2 Joint Sacral torsion MET to correct left sacral torsion 1 Joint MET to correct sacral nutation Body Position Prone PT-OP-T Assessment and Plan Start: 02/11/19 10:00 Freq: Status: Active Protocol: Document 02/11/19 10:00 [facility] (Rec: 02/17/19 12:25 [facility] [email or web address]) Physical Therapy Assessment Goals Three Impairment Impaired posture with an increase in lumbar lordosis in standing Short Term Goal (STG) Milka will be educated in postural modifications to decrease the exaggerated lumbar lordosis she stands in and improve support of her lumbar spine STG Duration 6 weeks Two Impairment Decreased core strength and SI joint stabilization Short Term Goal (STG) Milka is able to perform a standing march test on the right without the whole pelvis hiking up STG Duration 5 weeks Penitentiary Goal (LTG) Milka is instructed in a home exercise program for low back stabilization and SI joint stabilization LTG Duration 8 weeks One Impairment low back pain rated 7/10 Penitentiary Goal (LTG) Begin working on a low back stabilization program to minimize back pain and left sided radicular pain LTG Duration 8 weeks Assessment Summary Assessment Milka presents to physical therapy today with symptoms of bilateral low back pain and left sided radicular symptoms. She reports feeling that her leg length is off again and she can tell this with how her hip feels with her gait. She is unable to lift her right leg in standing without her whole pelvis hiking on the right. She has a increased lordosis in standing and poor abdominal control. Her lumbar spine is very limited into flexion. She would benefit from a lumbar stabilization program, postural exercises to reduce lordosis, and stretches for lumbar flexion. She is a good candidate for PT. Physical Therapy Plan Frequency and Duration Frequency of Treatment 2x/Week Duration of Treatment 8 Plan of Care Start Date 02/11/19 Plan of Care End Date 04/08/19 Therapeutic Interventions Therapeutic Interventions Home Exercise Program,Joint Mobilizations,Manual Therapy, Neuromuscular Re-education, Patient/Caregiver Education, Self-Care/Home Management,Soft Tissue Mobilization, Therapeutic Activities, Therapeutic Exercises Modalities Electric Stimulation,Hot Packs Next Visit Focus/Plan Next Note Type Treatment Note Next Visit Plan begin lumbar stabilization and postural modifications, manual therapy techniques for the sacrum and pelvis
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
== END 2019-02-20 12:59 ==
LOC: PHYS 10:30
PROVIDERS: Family Provider Nurse Practitioner; PCP Nurse Practitioner; Visit Provider Nurse Practitioner Family
DX: M54.16 Radiculopathy, lumbar region (principal); M51.26 Other intervertebral disc displacement, lumbar region
CPT/HCPCS: 97014; 97110; 97140; 97161; G0283

== ENCOUNTER 2020-11-12 13:06 | Emergency (ER) | payer OTHER, MEDICAID, SELFPAY ==
[2020-11-12] VITALS (8 sets, daily range): BP systolic 122–144; BP diastolic 63–92; PULSE 63–81; RESP 15–23; TEMP 36.7; O2SAT 95–100; BMI 24.4
--- NOTE | 2020-11-12 13:18 | DI.RAD.S_ITS ---
PROCEDURE: XR CHEST 2V INDICATIONS: shortness of breath TECHNIQUE: 2 views of the chest were acquired. COMPARISON: [facility], CHEST 2 VIEW, 07/19/2016, 16:06. [facility], CHEST 2 VIEW, 07/15/2017, 12:45. FINDINGS: Surgical changes and devices: None. Lungs and pleura: Lungs are clear. No pleural effusions or pneumothorax. Mediastinum: Mediastinal contours are normal. Heart size is normal. Bones and chest wall: No suspicious bony abnormalities. Soft tissues appear unremarkable. IMPRESSION: Chest radiographs within normal limits. Dictated by: Jake Olivo M.D. on 11/12/2020 at 12:51 Approved by: Jake Olivo M.D. on 11/12/2020 at 12:54
[2020-11-12 13:30] LABS: Add Manual Diff / Slide Review NO; Basophils Absolute Auto 0 /uL (0-100); Basophils Percent Auto 0.5 % (0-2); Eosinophils Absolute Auto 100 /uL (0-450); Hematocrit 42.8 % (36-46); Hemoglobin 14.8 g/dL (12.0-16.0); Lymphocytes Absolute Auto 2700 /uL (1100-4500); Lymphocytes Percent Auto 30.3 % (25-40); Mean Corpuscular HGB Conc 34.7 % (30-36); Mean Corpuscular Hemoglobin 32.4 PG (26-34); Mean Corpuscular Volume 93.6 fL (80-100); Monocytes Absolute Auto 600 /uL (0-900); Monocytes Percent Auto 6.2 % (3-14); Neutrophils Absolute Auto 5500 /uL (1500-7000); Platelet Count 276 X10^3/uL (150-400); Red Blood Cell Count 4.57 X10^6/uL (4.0-5.2); Red Cell Distribution Width 12.4 % (11.6-14.8); White Blood Cell Count 8.8 X10^3/uL (4.5-11.0)
[2020-11-12 13:34] LABS: COVID19 -Nasal RAPID Negative (Negative)
[2020-11-12 13:37] LABS: Alanine Aminotransferase 21 IU/L (<35); Albumin 4.8 g/dL (3.5-5.0); Albumin Globulin Ratio 1.5 (1.0-2.8); Alkaline Phosphatase 75 U/L (38-126); Aspartate Aminotransferase 25 IU/L (14-36); BUN Creatinine Ratio 12.5 (6-22); Bilirubin Total 0.4 mg/dL (0.2-1.3); Blood Urea Nitrogen 9 mg/dL (7-17); Calcium 10.4 mg/dL (8.4-10.2); Carbon Dioxide 24 mmol/L (22-32); Chloride 106 mmol/L (98-107); Estimated Glomerular Filt Rate > 60.0 mL/min (>60); Globulin 3.2 g/dL (1.7-4.1); Glucose 105 mg/dL (70-100); HEMOLYSIS < 15 (0-50); Lactate (Lactic Acid) 0.7 mmol/L (0.7-2.1); Potassium 4.2 mmol/L (3.4-5.1); Sodium 138 mmol/L (137-145)
[2020-11-12 13:58] LABS: Creatine Kinase 51 U/L (30-135)
[2020-11-12 14:11] LABS: Troponin I < 0.012 ng/mL (0.01-0.034)
--- NOTE | 2020-11-12 14:11 | ED_ITS ---
HPI - Nausea/Vomiting/Diarrhea General Chief complaint: Nausea/Vomiting/Diarrhea Stated complaint: headache/dizzy /vomitting/cough/shortness breath Time Seen by Provider: 11/12/20 14:04 Source: patient Mode of arrival: Ambulatory Limitations: no limitations History of Present Illness HPI Narrative: PATIENT IS A 40-YEAR-OLD FEMALE WHO PRESENTS WITH HEADACHE NASAL CONGESTION AND NOW NAUSEA AND VOMITING. SHE SAID THAT SHE has had headache nasal congestion ongoing for last 9 days she thinks it has been a sinus infe ction but she developed a fever of 102 a couple days ago and increasing pain. She says she is not typically get headaches. She started having nausea vomiting and diarrhea. She has diffuse all-over abdominal pain as well. She denies any neck pain or visual changes. She denies any numbness tingling or weakness Related Data Home Medications Medication Instructions Recorded Confirmed hydrocodone 5 mg-acetaminophen 300 2 tab PO TIDP PRN #0 02/14/16 mg tablet (Vicodin) cyclobenzaprine 5 mg tablet 5 mg PO TID #0 03/15/16 zolpidem 10 mg tablet (Ambien) 10 mg PO HSP PRN #0 07/19/16 amitriptyline 10 mg tablet 10 mg PO HS #0 07/15/17 Previous Rx's Medication Instructions Recorded amoxicillin 875 mg-potassium 1 tab PO Q12H #14 tab 11/12/20 clavulanate 125 mg tablet (Augmentin) Allergies Allergy/AdvReac Type Severity Reaction Status Date / Time ibuprofen [IBUPROFEN] Allergy Severe HIVES Verified 11/12/20 13:13 tramadol [TRAMADOL] Allergy Intermediate Verified 11/12/20 13:13 Review of Systems Review of Systems Narrative: GENERAL: Denies chills, fatigue, malaise, fever, sweats, travel HEENT: Sinus pressure RESPIRATORY: Denies dyspnea, cough, wheezing, hemoptysis, sputum. CARDIOVASCULAR: Denies chest pain, palpitations, orthopnea, edema GASTROINTESTINAL: See HPI : Denies dysuria, frequency, incontinence, hematuria, urinary retention, flank pain. MUSCULOSKELETAL: Denies weakness, joint pain, or bony pain SKIN: No rash, no erythema, no pruritus NEUROLOGIC: + headache PSYCHIATRIC: No concerning psychosocial issues. 12 point review of systems is negative except for those stated above and HPI Patient History Social History Smoking Status: Current every day smoker Smoking Status: Current every day smoker alcohol intake frequency: holidays/special occasions only Substance Use Type: does not use Exam Initial Vital Signs Initial Vital Signs: Vital Signs Temperature 98.1 F 11/12/20 13:13 Pulse Rate 81 11/12/20 13:13 Respiratory Rate 20 11/12/20 13:13 Blood Pressure 144/92 H 11/12/20 13:13 Pulse Oximetry 95 11/12/20 13:13 GENERAL: 40-year-old female in a darkened room HEENT: Head atraumatic,EOMI, pupils reactive, face symmetric, moist mucous membranes NECK: No vertebral tenderness negative Kernig and Brudzinski sign CARDIOVASCULAR: Regular rate and rhythm without murmurs, rubs or gallops. RESPIRATORY: Breath sounds equal bilaterally, no wheezes rales or rhonchi. ABDOMEN: Soft, diffuse mild abdominal pain EXTREMITIES: Normal range of motion, no clubbing or edema. Neurovascularly intact NEUROLOGICAL: Alert and oriented x4.Normal gait and speech. SKIN: Warm, dry, no laceration, no petechiae, no rashes or lesions. Course Orders Ordered: ED Orders 11/12/20 13:13 Complete Blood Count AUTO DIFF Stat Comprehensive Metabolic Panel Stat Lactate (Lactic Acid) Stat 11/12/20 13:15 COVID19 -Nasal swab/Pre-Proc Stat 11/12/20 13:18 XR chest 2V Stat 11/12/20 13:24 Troponin & CK Cardiac Panel Stat 11/12/20 13:25 EKG-12 Lead Stat 11/12/20 14:28 CT head/brain wo con Stat Discontinued Medications Acetaminophen (Acetaminophen 325 Mg Tablet) 975 mg PO NOW ONE Stop: 11/12/20 14:29 Last Admin: 11/12/20 14:32 Dose: 975 mg Documented by: FREDERICK Ondansetron HCl (Ondansetron 4 Mg/2 Ml Inj) 4 mg IV NOW ONE Stop: 11/12/20 14:29 Last Admin: 11/12/20 14:32 Dose: 4 mg Documented by: FREDERICK Vital Signs Vital signs: Vital Signs - 8 hr 11/12/20 13:13 11/12/20 13:55 11/12/20 14:04 Temperature 98.1 F Pulse Rate 81 75 71 Respiratory Rate 20 15 15 Blood Pressure 144/92 H 122/72 Pulse Oximetry 95 96 98 07/10/21 14:30 11/12/20 15:00 11/12/20 15:30 Temperature Pulse Rate 71 69 68 Respiratory Rate 23 17 20 Blood Pressure 132/76 Pulse Oximetry 98 96 98 11/12/20 16:00 11/12/20 16:25 Temperature Pulse Rate 63 67 Respiratory Rate 15 16 Blood Pressure 128/63 Pulse Oximetry 98 100 MDM - Nausea/Vomiting/Diarrhea Lab Data Result diagrams: 11/12/20 13:13 11/12/20 13:13 Labs: Lab Results 11/12/20 11/12/20 11/12/20 Range/Units 13:13 13:13 13:13 WBC 8.8 (4.5-11.0) X10^3/uL RBC 4.57 (4.0-5.2) X10^6/uL Hgb 14.8 (12.0-16.0) g/dL Hct 42.8 (36-46) % MCV 93.6 (80-100) fL MCH 32.4 (26-34) PG MCHC 34.7 (30-36) % RDW 12.4 (11.6-14.8) % Plt Count 276 (150-400) X10^3/uL Neut % (Auto) 62.0 (50-75) % Lymph % (Auto) 30.3 (25-40) % [place] % (Auto) 6.2 (3-14) % Eos % (Auto) 1.0 L (2-4) % Baso % (Auto) 0.5 (0-2) % Neut # (Auto) 5500 (6236-5283) /uL Lymph # (Auto) 2700 (8570-5082) /uL [place] # (Auto) 600 (0-900) /uL Eos # (Auto) 100 (0-450) /uL Baso # (Auto) 0 (0-100) /uL Sodium 138 (137-145) mmol/L Potassium 4.2 (3.4-5.1) mmol/L Chloride 106 (98-107) mmol/L Carbon Dioxide 24 (22-32) mmol/L BUN 9 (7-17) mg/dL Creatinine 0.72 (0.52-1.04) mg/dL Estimated GFR > 60.0 (>60) mL/min BUN/Creatinine Ratio 12.5 (6-22) Glucose 105 H (70-100) mg/dL Lactate 0.7 (0.7-2.1) mmol/L Calcium 10.4 H (8.4-10.2) mg/dL Total Bilirubin 0.4 (0.2-1.3) mg/dL AST 25 (14-36) IU/L ALT 21 (<35) IU/L Alkaline Phosphatase 75 (38-126) U/L Total Creatine Kinase (30-135) U/L CK-MB (CK-2) CK-MB (CK-2) Rel Index Troponin I (0.01-0.034) ng/mL Total Protein 8.0 (6.3-8.2) g/dL Albumin 4.8 (3.5-5.0) g/dL Globulin 3.2 (1.7-4.1) g/dL Albumin/Globulin Ratio 1.5 (1.0-2.8) SARS-CoV-2 (PCR) (Negative) 11/12/20 11/12/20 Range/Units 13:15 13:24 WBC (4.5-11.0) X10^3/uL RBC (4.0-5.2) X10^6/uL Hgb (12.0-16.0) g/dL Hct (36-46) % MCV (80-100) fL MCH (26-34) PG MCHC (30-36) % RDW (11.6-14.8) % Plt Count (150-400) X10^3/uL Neut % (Auto) (50-75) % Lymph % (Auto) (25-40) % [place] % (Auto) (3-14) % Eos % (Auto) (2-4) % Baso % (Auto) (0-2) % Neut # (Auto) (6941-1532) /uL Lymph # (Auto) (5613-7076) /uL [place] # (Auto) (0-900) /uL Eos # (Auto) (0-450) /uL Baso # (Auto) (0-100) /uL Sodium (137-145) mmol/L Potassium (3.4-5.1) mmol/L Chloride (98-107) mmol/L Carbon Dioxide (22-32) mmol/L BUN (7-17) mg/dL Creatinine (0.52-1.04) mg/dL Estimated GFR (>60) mL/min BUN/Creatinine Ratio (6-22) Glucose (70-100) mg/dL Lactate (0.7-2.1) mmol/L Calcium (8.4-10.2) mg/dL Total Bilirubin (0.2-1.3) mg/dL AST (14-36) IU/L ALT (<35) IU/L Alkaline Phosphatase (38-126) U/L Total Creatine Kinase 51 (30-135) U/L CK-MB (CK-2) TNP CK-MB (CK-2) Rel Index TNP Troponin I < 0.012 (0.01-0.034) ng/mL Total Protein (6.3-8.2) g/dL Albumin (3.5-5.0) g/dL Globulin (1.7-4.1) g/dL Albumin/Globulin Ratio (1.0-2.8) SARS-CoV-2 (PCR) Negative (Negative) Urine Dip Bedside Urine Glucose Negative Bedside Urine Bilirubin - Negative Bedside Urine Ketone - Negative Urine Specific [place] 1.020 Bedside Urine Occult Blood - Negative Bedside Urine pH 6.5 Bedside Urine Protein - Negative Bedside Urine Urobilinogen - Negative Bedside Urine Nitrite - Negative Bedside Urine Leukocytes - Negative Esterase Imaging Data CT scan - head: Radiologist's Impression: PROCEDURE: CT HEAD/BRAIN WO CON INDICATIONS: persistant headache TECHNIQUE: Noncontrast 4.5 mm thick angled axial sections acquired from the foramen magnum to the vertex, with coronal and sagittal reformats. For radiation dose reduction, the following was used: automated exposure control, adjustment of mA and/or kV according to patient size. COMPARISON: None. FINDINGS: Image quality: Excellent. CSF spaces: Basal cisterns are patent. No extra-axial fluid collections. Ventricles are normal in size and shape. Brain: No midline shift. No intracranial masses or hemorrhage. Jacinto-white matter interface is normal. Skull and face: Calvarium and visualized facial bones are intact, without suspicious lesions. Sinuses: Visualized sinuses and mastoids are clear. IMPRESSION: No acute intracranial abnormality. Dictated by: Skip Stuart M.D. on 11/12/2020 at 14:52 Approved by: Skip Stuart M.D. on 11/12/2020 at 14:53 Chest x-ray: Radiologist's Impression: PROCEDURE: XR CHEST 2V INDICATIONS: shortness of breath TECHNIQUE: 2 views of the chest were acquired. COMPARISON: [facility], CHEST 2 VIEW, 07/19/2016, 16:06. [facility], CHEST 2 VIEW, 07/15/2017, 12:45. FINDINGS: Surgical changes and devices: None. Lungs and pleura: Lungs are clear. No pleural effusions or pneumothorax. Mediastinum: Mediastinal contours are normal. Heart size is normal. Bones and chest wall: No suspicious bony abnormalities. Soft tissues appear unremarkable. IMPRESSION: Chest radiographs within normal limits. Dictated by: Jake Olivo M.D. on 11/12/2020 at 12:51 ECG Data Interpretation: Sinus rhythm rate 71 WA 142 QRS [address] changes MDM Narrative Medical decision making narrative: Patient has obvious nasal congestion with frontal pressure. She has had ongoing sinus congestion for 9 days and now fever of 102 which is an indication to start antibiotics. CT is negative. After Zofran the patient's abdominal discomfort has gone away completely abdomen is reexamined and is nonpainful. Blood work is overall reassuring. At this time I do recommend starting antibiotics and following. She has no signs of meningitis. Discharge Plan Departure Patient Disposition: Home Clinical Impression: Sinusitis Qualifiers: Sinusitis location: frontal Chronicity: acute Recurrence: non-recurrent Qualified Code(s): J01.10 - Acute frontal sinusitis, unspecified Instructions: DI for Sinusitis Activity Restrictions/Additional Instructions: *You have been diagnosed with sinusitis *What to do: At this time headache is likely due from sinus infection *Continue to take medications as directed Augmentin 875 mg twice a day for 7 days *Follow up with your primary care provider in 2-3 days *Return to ER if you should have worsening headache nausea vomiting or any new, worsening or concerning symptoms Prescriptions: New amoxicillin-pot clavulanate [Augmentin] 875-125 mg tablet 1 tab PO Q12H Qty: 14 RF: 0 No Action hydrocodone-acetaminophen [Vicodin] 5 MG/300 MG tablet 2 tab PO TIDP PRNQty: 0 RF: 0 cyclobenzaprine 5 MG tablet 5 mg PO TID Qty: 0 RF: 0 zolpidem [Ambien] 10 MG tablet 10 mg PO HSP PRNQty: 0 RF: 0 amitriptyline 10 MG tablet 10 mg PO HS Qty: 0 RF: 0 Referrals: Diana Mendez ARNP [Primary Care Provider] -
--- NOTE | 2020-11-12 14:28 | DI.CT.S_ITS ---
PROCEDURE: CT HEAD/BRAIN WO CON INDICATIONS: persistant headache TECHNIQUE: Noncontrast 4.5 mm thick angled axial sections acquired from the foramen magnum to the vertex, with coronal and sagittal reformats. For radiation dose reduction, the following was used: automated exposure control, adjustment of mA and/or kV according to patient size. COMPARISON: None. FINDINGS: Image quality: Excellent. CSF spaces: Basal cisterns are patent. No extra-axial fluid collections. Ventricles are normal in size and shape. Brain: No midline shift. No intracranial masses or hemorrhage. Jacinto-white matter interface is normal. Skull and face: Calvarium and visualized facial bones are intact, without suspicious lesions. Sinuses: Visualized sinuses and mastoids are clear. IMPRESSION: No acute intracranial abnormality. Dictated by: Skip Stuart M.D. on 11/12/2020 at 14:52 Approved by: Skip Stuart M.D. on 11/12/2020 at 14:53
[2020-11-12] MEDS: ONDANSETRON 4 MG/2 ML INJ IV (14:32)
[2020-11-12] MEDS: ACETAMINOPHEN 325 MG TABLET 975 MG PO (14:32)
== END 2020-11-12 16:26 | disposition home or self-care (01) ==
PROVIDERS: Emergency Provider Emergency Medicine; Family Provider Nurse Practitioner; PCP Nurse Practitioner
DX: J01.10 Acute frontal sinusitis, unspecified (principal); R11.2 Nausea with vomiting, unspecified; R50.9 Fever, unspecified; R09.81 Nasal congestion; R06.02 Shortness of breath; Z20.822 Contact with and (suspected) exposure to COVID-19
CPT/HCPCS: 36415; 70450; 71046; 80053; 81003; 82550; 83605; 84484; 85025; 87635; 93005; 93010; 96374; 99284; C9803; J2405

== ENCOUNTER 2021-01-31 09:23 | Emergency (ER) | payer OTHER, MEDICAID, SELFPAY ==
[2021-01-31 09:33] VITALS: BP 138/81; PULSE 91; RESP 14; TEMP 36.3; O2SAT 97; BMI 29.0
--- NOTE | 2021-01-31 09:33 | DI.RAD.S_ITS ---
PROCEDURE: XR FOOT RT MIN 3V INDICATIONS: fall with foot pain TECHNIQUE: 3 views of the foot were acquired. COMPARISON: None. FINDINGS: Bones: Subtle lucency near the base of the 4th toe proximal phalanx without cortical disruption is likely related to trabeculation artifact. This is only seen on the oblique view. Otherwise, no acute fractures or dislocations. No suspicious bony lesions. Soft tissues: No tibiotalar joint effusion. Achilles tendon appears normal. IMPRESSION: Subtle lucency near the base of the 4th toe proximal phalanx without associated cortical disruption. This is likely related to trabeculation artifact. Recommend correlating with physical exam to rule out point tenderness at the level of the 4th metatarsophalangeal joint. Otherwise, no acute fracture or dislocation. If there is persistent clinical concern for occult fracture given adequate mechanism of injury, consider repeat imaging in 10-14 days. Dictated by: Iftikhar Xiao M.D. on 01/31/2021 at 9:46 Approved by: Iftikhar Xiao M.D. on 01/31/2021 at 9:50
--- NOTE | 2021-01-31 09:58 | ED.LOWEXIN ---
HPI - Extremity Injury (Lower) General Chief Complaint: Extremity Injury, Lower Stated Complaint: thinks broke right foot Time Seen by Provider: 01/31/21 09:29 Source: patient Mode of arrival: Wheelchair Limitations: no limitations History of Present Illness HPI Narrative: 40-year-old female daily smoker without chronic medical problems presents with a chief complaint of an injury to her right foot suffered this morning. She was walking down some stairs and misjudged the bottom stair and stepped awkwardly. She has felt pain and developed some swelling in the aftermath. Her pain is worse with ambulation and improves with rest. She denies any ankle, knee or hip pain. She denies any history of the same. She has no numbness, tingling weakness. She is otherwise well and free of complaint. Related Data Home Medications Medication Instructions Recorded Confirmed hydrocodone 5 mg-acetaminophen 300 2 tab PO TIDP PRN #0 02/14/16 mg tablet (Vicodin) cyclobenzaprine 5 mg tablet 5 mg PO TID #0 03/15/16 zolpidem 10 mg tablet (Ambien) 10 mg PO HSP PRN #0 07/19/16 amitriptyline 10 mg tablet 10 mg PO HS #0 07/15/17 Previous Rx's Medication Instructions Recorded amoxicillin 875 mg-potassium 1 tab PO Q12H #14 tab 11/12/20 clavulanate 125 mg tablet (Augmentin) Allergies Allergy/AdvReac Type Severity Reaction Status Date / Time ibuprofen [IBUPROFEN] Allergy Severe HIVES Verified 01/31/21 09:36 tramadol [TRAMADOL] Allergy Intermediate Verified 01/31/21 09:36 Review of Systems Review of Systems Narrative: GENERAL: Denies chills, fatigue, malaise, fever, sweats. HEENT: Denies sinus pain, ear pain, sore throat, difficulty swallowing, dizziness. RESPIRATORY: Denies dyspnea, cough, wheezing, hemoptysis, sputum. CARDIOVASCULAR: Denies chest pain, palpitations, orthopnea, edema, GASTROINTESTINAL: Denies nausea, vomiting, abdominal pain, diarrhea, constipation, melena. : Denies dysuria, frequency, incontinence, hematuria, urinary retention. MUSCULOSKELETAL: See HPI SKIN: Denies rash, skin lesions, or other NEUROLOGIC: Denies weakness, headache, numbness, change in speech, confusion, seizures, incoordination. PSYCHIATRIC: No concerning psychosocial issues. 12 point review of systems is negative except for those stated above Patient History Social History Smoking Status: Current every day smoker Smoking Status: Current every day smoker alcohol intake frequency: holidays/special occasions only Substance Use Type: does not use Exam Narrative Exam Narrative: GEN: AOx3 and in mild distress EYES: Pupils are equal, round, and reactive to light and accommodation. Extraoccular muscles are intact bilaterally. There is no subconjunctival hemorrhage or exudate. CHEST: Lungs are clear to auscultation bilaterally and free of wheezes, rales, or rhonchi. Heart rate is regular rhythm, there are no murmurs, clicks, rubs, or gallops. There is no chest wall tenderness. ABD: Abdomen is soft and nontender. There is no guarding or rebound. Bowel sounds are normal in all 4 quadrants. There is no mass or organomegaly. EXT: Full but painful range of motion of the right foot closed, isolated neurovascularly intact. No pain on palpation of knee or with calf squeeze. Primary pain on dorsum of foot at metatarsophalangeal SKIN: Warm, pink, and dry. No erythema or rash Initial Vital Signs Initial Vital Signs: Vital Signs Temperature 97.3 F L 01/31/21 09:33 Pulse Rate 91 H 01/31/21 09:33 Respiratory Rate 14 01/31/21 09:33 Blood Pressure 138/81 01/31/21 09:33 Pulse Oximetry 97 01/31/21 09:33 Procedures Orthopedic Splinting/Casting Injury #1: Side: right Lower Extremity Injury Location: foot Lower Extremity Immobilizer: post-op shoe Post splinting neuro exam: intact Post splinting vascular exam: intact Placed by: Nursing Course Orders Ordered: ED Orders 01/31/21 09:33 XR foot RT min 3V Stat Vital Signs Vital signs: Vital Signs - 8 hr 01/31/21 09:33 Temperature 97.3 F L Pulse Rate 91 H Respiratory Rate 14 Blood Pressure 138/81 Pulse Oximetry 97 MDM - Extremity Injury (Lower) Imaging Data Extremity x-ray #1: Radiologist's Impression: Launch?[address] [address] XRay Report Signed Patient: Milka Francis MR#: [id number] : 1980 Acct:[id number] Age/Sex: 40 / F Date of Service: 01/31/21 Loc: ED Accession Number: [id number] ?? Procedure: XR foot RT min 3V Ordering Provider: Jose F La D.O. PROCEDURE:? XR FOOT RT MIN 3V ? INDICATIONS:? fall with foot pain ? TECHNIQUE:? 3 views of the foot were acquired.? ? COMPARISON:? None. ? FINDINGS:? ? Bones:? Subtle lucency near the base of the 4th toe proximal phalanx without cortical disruption is likely related to trabeculation artifact.? This is only seen on the oblique view.? Otherwise, no acute fractures or dislocations.? No suspicious bony lesions.? ? Soft tissues:? No tibiotalar joint effusion.? Achilles tendon appears normal.? ? ? IMPRESSION:? Subtle lucency near the base of the 4th toe proximal phalanx without associated cortical disruption.? This is likely related to trabeculation artifact.? Recommend correlating with physical exam to rule out point tenderness at the level of the 4th metatarsophalangeal joint.? Otherwise, no acute fracture or dislocation. ? If there is persistent clinical concern for occult fracture given adequate mechanism of injury, consider repeat imaging in 10-14 days. ? ? ? Dictated by: Iftikhar Xiao M.D. on 01/31/2021 at 9:46 ? ? Approved by: Iftikhar Xiao M.D. on 01/31/2021 at 9:50 ? Discharge Plan Departure Patient Disposition: Home Clinical Impression: Foot fracture, left Qualifiers: Encounter type: initial encounter Fracture type: closed Qualified Code(s): S92.902A - Unspecified fracture of left foot, initial encounter for closed fracture Instructions: DI for Fracture Activity Restrictions/Additional Instructions: *You have been diagnosed with [left foot injury, possible mild nondisplaced fracture of your 4th toe *What to do: *Please continue to take your regular medications as directed. [ ] New medication prescriptions sent to your pharmacy: [ ] [ ] New medication written as a paper prescription [ ] No new medications given *Please follow up with your primary care provider in 2-3 days, call for an appointment. Let them know you were seen in the Emergency Department and that we ask that you be seen in follow up. We will electronically transmit a record of today's note if your PCP is in our system *If you do not have a primary care provider please contact the [facility] Resource line at [phone]. They will ask some questions about your medical history and help get you set up with a doctor in the community. *Return to Emergency Department if you should have any new, worsening or concerning symptoms, such as [fever greater than 101 F, shaking chills, worsening pain, persistent vomiting or other bothersome symptoms] Weight-bearing as tolerated Prescriptions: No Action hydrocodone-acetaminophen [Vicodin] 5 MG/300 MG tablet 2 tab PO TIDP PRNQty: 0 RF: 0 cyclobenzaprine 5 MG tablet 5 mg PO TID Qty: 0 RF: 0 zolpidem [Ambien] 10 MG tablet 10 mg PO HSP PRNQty: 0 RF: 0 amitriptyline 10 MG tablet 10 mg PO HS Qty: 0 RF: 0 amoxicillin-pot clavulanate [Augmentin] 875-125 mg tablet 1 tab PO Q12H Qty: 14 RF: 0 Referrals: Samreen Husain, [facility] [Primary Care Provider] -
== END 2021-01-31 10:20 | disposition home or self-care (01) ==
PROVIDERS: Emergency Provider Emergency Medicine; Family Provider Nurse Practitioner; PCP Nurse Practitioner Family
DX: S92.902A Unspecified fracture of left foot, initial encounter for closed fracture (principal); W19.XXXA Unspecified fall, initial encounter
CPT/HCPCS: 73630; 99283

== ENCOUNTER → 2021-05-11 09:26 | Outpatient (CLI) | payer OTHER, MEDICAID, SELFPAY | PROVIDERS: Family Provider Nurse Practitioner; PCP Nurse Practitioner Family; Referring Provider Nurse Practitioner Family; Visit Provider Nurse Practitioner Family | DX: J02.9 Acute pharyngitis, unspecified (principal) | CPT/HCPCS: 87070; 87880 ==

== ENCOUNTER → 2021-05-13 10:32 | Outpatient (CLI) | payer OTHER, MEDICAID, SELFPAY ==
[2021-05-13 11:12] LABS: COVID19 -Nasal RAPID Negative (Negative)
== END ==
PROVIDERS: Family Provider Nurse Practitioner; PCP Nurse Practitioner Family; Visit Provider Nurse Practitioner Family
DX: Z20.822 Contact with and (suspected) exposure to COVID-19 (principal); J02.9 Acute pharyngitis, unspecified
CPT/HCPCS: 87635

== ENCOUNTER → 2021-10-27 17:10 | Outpatient (CLI) | payer OTHER, MEDICAID, SELFPAY | PROVIDERS: Family Provider Nurse Practitioner; PCP Nurse Practitioner Family; Visit Provider Nurse Practitioner Family | DX: J31.2 Chronic pharyngitis (principal) | CPT/HCPCS: 87070; 87077; 87186; 87880 ==

== ENCOUNTER → 2022-01-23 12:03 | Outpatient (CLI) | payer OTHER, MEDICAID, SELFPAY ==
[2022-01-23 12:32] LABS: Add Manual Diff / Slide Review NO; Basophils Absolute Auto 0 /uL (0-100); Basophils Percent Auto 0.3 % (0-2); Eosinophils Absolute Auto 0 /uL (0-450); Eosinophils Percent Auto 0.5 % (2-4); Hemoglobin 12.6 g/dL (12.0-16.0); Lymphocytes Absolute Auto 2400 /uL (1100-4500); Lymphocytes Percent Auto 35.1 % (25-40); Mean Corpuscular Hemoglobin 32.3 PG (26-34); Mean Corpuscular Volume 92.2 fL (80-100); Monocytes Absolute Auto 500 /uL (0-900); Monocytes Percent Auto 6.7 % (3-14); Neutrophils Absolute Auto 4000 /uL (1500-7000); Neutrophils Percent Auto 57.4 % (50-75); Platelet Count 267 X10^3/uL (150-400); Red Cell Distribution Width 11.9 % (11.6-14.8); White Blood Cell Count 6.9 X10^3/uL (4.5-11.0)
[2022-01-23 12:43] LABS: BUN Creatinine Ratio 15.1 (6-22); Blood Urea Nitrogen 14 mg/dL (7-17); Calcium 8.9 mg/dL (8.4-10.2); Carbon Dioxide 24 mmol/L (22-32); Chloride 104 mmol/L (98-107); Cholesterol 191 mg/dL (140-199); Estimated Glomerular Filt Rate > 60 mL/min (>60); Glucose 114 mg/dL (70-100); HDL Cholesterol 60 mg/dL (40-60); HEMOLYSIS < 15 (0-50); LDL Cholesterol Calculated 102 mg/dL (<100); Potassium 3.9 mmol/L (3.4-5.1); Sodium 139 mmol/L (137-145); Triglycerides 146 mg/dL (35-150)
[2022-01-23 13:55] LABS: TSH w/ Reflex to FT4 1.14 uIU/mL (0.47-4.68)
== END ==
PROVIDERS: Family Provider Nurse Practitioner; PCP Nurse Practitioner Family; Referring Provider Internal Medicine Cardiovascular Disease; Visit Provider Internal Medicine Cardiovascular Disease
DX: R00.2 Palpitations (principal); R06.00 Dyspnea, unspecified
CPT/HCPCS: 36415; 80048; 80061; 84443; 85025

== ENCOUNTER → 2022-03-26 12:54 | Outpatient (CLI) | payer OTHER, MEDICAID, SELFPAY ==
--- NOTE | 2022-03-26 12:57 | DI.ECHO.S_ITS ---
[facility]---------+ [facility] +---------+ : : [address] : : : : [id number] : : : : Phone: [phone]+ Echocardiogram Report + + :Name: JOVI BLACK Study Date: 03/26/2022 Height: 66.5 in: :[facility] ReadingLocation: Weight: 200 lb : : Gender: Female BSA: 2.0 m2 : :: 1980 Age: 41 yrs BP: 122/92 mmHg: :Reason For Study: CHEST PAIN : :Ordering Physician: JOJO, : :DO Performed By: Yee Barron : :Referring: DO PEREZ : + + Interpretation Summary 1) Normal left ventricular thickness, size, wall motion, and systolic function (EF 55-60%). 2) Normal right ventricular size and function. 3) No significant valvular abnormalities. 4) No prior Echo available for comparison. Procedure: A two-dimensional transthoracic echocardiogram with color flow and Doppler was performed. The study quality was technically adequate. There is no prior echocardiogram noted for this patient. The patient was in sinus rhythm with heart rates between 67-85 bpm during the exam. Left Ventricle: The left ventricle is normal in size and wall thickness. The ejection fraction is estimated to be 55-60%. Left ventricular systolic function appears normal without focal wall motion abnormalities. Diastolic parameters suggest probable normal left ventricular diastolic function and normal filling pressures. Right Ventricle: The right ventricle is normal in size and function. Atria: The left atrial size is normal. Right atrial size is normal. There is no Doppler evidence for an interatrial shunt. Mitral Valve: The mitral valve is normal in structure and function. There is mild mitral regurgitation. Aortic Valve: The aortic valve is trileaflet. The aortic valve opens well. There is no aortic valve stenosis. No aortic regurgitation is present. Tricuspid Valve: The tricuspid valve is normal in structure and function. There is mild tricuspid regurgitation. The right ventricular systolic pressure is estimated to be at least 24 mmHg based on an estimated right atrial pressure of 3 mm Hg. Pulmonic Valve: The pulmonic valve leaflets are thin and pliable; valve motion is normal. There is a trace or physiologic amount of pulmonic regurgitation. Great Vessels: The aortic root is normal size. The dimensions of the ascending aorta are normal. The IVC is of normal diameter and collapses greater than 50% with a sniff. This suggests a low right atrial pressure of 3 mm Hg. Pericardium/ Pleura There is no pericardial effusion. There is no pleural effusion. MMode/2D Measurements & Calculations LVIDd: 4.5 cm LVOT diam: 2.0 cm LVIDs: 2.9 cm Ao root diam: 3.2 cm FS: 35.0 % asc Aorta Diam: 3.2 cm IVSd: 0.85 cm Ao Arch Diam (Prox Trans): 2.7 cm LVPWd: 0.97 cm LV trevizo. diameter/BSA (cm/m^2): 2.2 LV sys. diameter/BSA (cm/m^2): 1.4 LA A2 area: 20.7 cm2 RA long axis: 5.0 cm LA A4 area: 20.1 cm2 RA area: 15.3 cm2 LA length (vol): 5.6 cm RA vol: 39.9 ml LA vol: 62.9 ml RA : 19.9 ml/m2 LA vol index: 31.3 ml/m2 IVC diam: 1.2 cm RVD1 (basal): 3.2 cm RVD2 (mid): 3.0 cm TAPSE: 2.1 cm Doppler Measurements & Calculations Ao V2 max: 133.1 cm/sec LVOT Max Crow: 100.6 cm/sec Ao V2 mean: 104.9 cm/sec LV V1 max P.1 mmHg Ao max P.1 mmHg LV V1 VTI: 19.9 cm Ao mean P.6 mmHg BAO(I,D): 2.5 cm2 Ao V2 VTI: 26.8 cm BAO(V,D): 2.5 cm2 sev ratio: 0.74 BAO indexed to BSA (cm^2/m^2): 1.2 MV E max crow: 63.0 cm/sec TR max crow: 229.8 cm/sec MV A max crow: 56.4 cm/sec TR max P.1 mmHg MV E/A: 1.1 PA V2 max: 92.2 cm/sec Med Peak E' Crow: 7.8 cm/sec PA V2 mean: 68.9 cm/sec E/E' med: 8.0 PA mean P.1 mmHg Lat Peak E' Crow: 12.3 cm/sec PA pr(Accel): 39.6 mmHg E/E' lat: 5.1 E/e' average: 6.6 MV dec time: 0.20 sec SV(LVOT): 65.6 ml Reading Physician:11:26 AM
[2022-03-26 13:42] LABS: COVID19 -Nasal RAPID Negative (Negative)
--- NOTE | 2022-03-26 21:31 | DI.NM.S_ITS ---
DATE OF SERVICE: 03/26/2022 PROCEDURE: Exercise stress test. INDICATION: Palpitation, chest pain, dyspnea. CARDIAC STRESS: Patient underwent exercise stress test under the supervision of an attending staff. She walked on Dandy protocol for about 9 minutes and achieved 10.1 METs of workload, SANDRA of 0 percent. Baseline rhythm was sinus. Baseline blood pressure 115/80. Peak blood pressure 180/89 mmHg. The patient achieved 92 percent of target heart rate. During stress, no convincing ischemic changes seen. No complex arrhythmias, other than rare single PVCs. No claudication or ischemic symptoms. CONCLUSION: Exercise stress test is negative for inducible ischemia. Normal hemodynamic response. No anginal symptoms. No complex arrhythmias. 10.1 metabolic equivalents of workload. Overall, low-risk exercise stress test. Milka Francis - Mark/donna doc#: [id number]/job#: [id number] dd: 03/26/2022 17:16:00 dt: 03/26/2022 21:16:00 DICTATING /COPIES TO: Gideon Arellano MD COPIES MNE: MORALES;
== END ==
PROVIDERS: Family Provider Nurse Practitioner; PCP Nurse Practitioner Family; Referring Provider Internal Medicine Cardiovascular Disease; Visit Provider Internal Medicine Cardiovascular Disease
DX: R07.89 Other chest pain (principal); R00.2 Palpitations; R06.00 Dyspnea, unspecified; Z20.822 Contact with and (suspected) exposure to COVID-19
CPT/HCPCS: 87635; 93017; 93306

== ENCOUNTER 2022-05-07 12:46 | Emergency (ER) | payer OTHER, MEDICAID, SELFPAY ==
[2022-05-07 13:43] VITALS: BP 132/78; PULSE 91; RESP 14; TEMP 36.6; O2SAT 98; BMI 33.2
--- NOTE | 2022-05-07 14:00 | ED_ITS ---
HPI - Dental/Oral <Gypsy Gray, [facility] - Last Filed: 05/07/22 15:05> General Chief complaint: Dental/Oral Stated complaint: swollen left side of face and throat Time Seen by Provider: 05/07/22 13:55 Source: patient Mode of arrival: Family Vehicle History of Present Illness HPI Narrative: This is a 41-year-old female presents to the emergency department with onset of left lower jaw swelling related to a fractured tooth with dental decay. Patient states that she is on Augmentin currently for ear pain and started on that a few days ago. States that today when she woke up in her jaw was swollen, she was concerned that the antibiotic isn't working. She has allergy with hives to ibuprofen but can tolerate naproxen, has had Toradol in the past. Denies fever chills but states that her pain is getting worse and the swelling is significant. Denies any lumps or bumps that she thinks is an abscess. Denies any recent dental work, trauma, denies any swelling of her oropharynx or throat, no difficulty swallowing. She is not on any MICHELLE inhibitors, states that she is been on Augmentin for a few days. Denies any rash. Related Data Home Medications Medication Instructions Recorded Confirmed hydrocodone 5 mg-acetaminophen 300 2 tab PO TIDP PRN ##0 02/14/16 10/27/21 mg tablet (Vicodin) cyclobenzaprine 5 mg tablet 5 mg PO TID ##0 03/15/16 10/27/21 zolpidem 10 mg tablet (Ambien) 10 mg PO HSP PRN ##0 07/19/16 10/27/21 amitriptyline 10 mg tablet 10 mg PO HS ##0 07/15/17 10/27/21 Previous Rx's Medication Instructions Recorded clindamycin HCl 150 mg capsule 450 mg PO TID 10 days #90 caps 05/07/22 hydrocodone 5 mg-acetaminophen 325 1 tab PO BID PRN pain #10 tabs 05/07/22 mg tablet naproxen 250 mg tablet 250 mg PO BID PRN pain #20 tabs 05/07/22 Allergies Allergy/AdvReac Type Severity Reaction Status Date / Time ibuprofen [IBUPROFEN] Allergy Severe HIVES Verified 05/07/22 13:43 tramadol [TRAMADOL] Allergy Intermediate Verified 05/07/22 13:43 Review of Systems <PHIL De La Cruz - Last Filed: 05/07/22 15:05> Review of Systems ROS Unobtainable: All systems reviewed & are unremarkable except as noted in HPI and below Patient History <PHIL De La Cruz - Last Filed: 05/07/22 15:05> Social History Smoking Status: Current every day smoker Smoking Status: Current every day smoker tobacco type: cigarettes and vaping alcohol intake frequency: holidays/special occasions only Substance Use Type: does not use Exam <PHIL De La Cruz - Last Filed: 05/07/22 15:05> Narrative Exam Narrative: Reviewed vitals signs and nursing notes. General: cooperative, comfortable, in no acute distress, well groomed HEENT: symmetrical facial expressions, moist mucous membranes, swollen to the left lateral lower face without fluctuance, exquisite tenderness, palpable mass or evidence of abscess. Mild lymphadenopathy of anterior cervical nodes on left, less than 1 cm. Afebrile, without drainage Skin: brisk capillary refill, without pallor or erythema Neuro: normal speech and cognition, A&O x3, ambulatory, clear speech Psych: mental status is grossly normal, congruent mood, normal affect, pleasant and cooperative Initial Vital Signs Initial Vital Signs: Vital Signs Temperature 97.8 F 05/07/22 13:43 Pulse Rate 91 H 05/07/22 13:43 Respiratory Rate 14 05/07/22 13:43 Blood Pressure 132/78 05/07/22 13:43 Pulse Oximetry 98 05/07/22 13:43 Oxygen Delivery Method 05/07/22 13:43 <Reuben Odonnell MD - Last Filed: 05/16/22 21:44> Initial Vital Signs Initial Vital Signs: Vital Signs Temperature 97.8 F 05/07/22 13:43 Pulse Rate 91 H 05/07/22 13:43 Respiratory Rate 14 05/07/22 13:43 Blood Pressure 132/78 05/07/22 13:43 Pulse Oximetry 98 05/07/22 13:43 Oxygen Delivery Method 05/07/22 13:43 Course <PHIL De La Cruz - Last Filed: 05/07/22 15:05> Orders Ordered: Discontinued Medications Clindamycin HCl (Clindamycin 150 Mg Capsule) 300 mg PO NOW ONE Stop: 05/07/22 13:56 Last Admin: 05/07/22 14:08 Dose: 300 mg Documented By: AT Clindamycin HCl (Clindamycin 150 Mg Capsule) 150 mg PO NOW ONE Stop: 05/07/22 13:59 Last Admin: 05/07/22 14:08 Dose: 150 mg Documented By: AT Dexamethasone (Dexamethasone 10 Mg/Ml Vial) 10 mg PO NOW ONE Stop: 05/07/22 13:56 Last Admin: 05/07/22 14:09 Dose: 10 mg Documented By: AT Ketorolac Tromethamine (Ketorolac 30 Mg/Ml Vial) 15 mg IM NOW ONE Stop: 05/07/22 13:56 Last Admin: 05/07/22 14:10 Dose: 15 mg Documented By: AT Vital Signs Vital signs: Vital Signs - 8 hr 05/07/22 13:43 Temperature 97.8 F Pulse Rate 91 H Respiratory Rate 14 Blood Pressure 132/78 Pulse Oximetry 98 Oxygen Delivery Method Room Air <Reuben Odonnell MD - Last Filed: 05/16/22 21:44> Orders Ordered: Discontinued Medications Clindamycin HCl (Clindamycin 150 Mg Capsule) 300 mg PO NOW ONE Stop: 05/07/22 13:56 Last Admin: 05/07/22 14:08 Dose: 300 mg Documented By: AT Clindamycin HCl (Clindamycin 150 Mg Capsule) 150 mg PO NOW ONE Stop: 05/07/22 13:59 Last Admin: 05/07/22 14:08 Dose: 150 mg Documented By: AT Dexamethasone (Dexamethasone 10 Mg/Ml Vial) 10 mg PO NOW ONE Stop: 05/07/22 13:56 Last Admin: 05/07/22 14:09 Dose: 10 mg Documented By: AT Ketorolac Tromethamine (Ketorolac 30 Mg/Ml Vial) 15 mg IM NOW ONE Stop: 05/07/22 13:56 Last Admin: 05/07/22 14:10 Dose: 15 mg Documented By: AT Vital Signs Vital signs: Vital Signs - 8 hr 05/07/22 13:43 Temperature 97.8 F Pulse Rate 91 H Respiratory Rate 14 Blood Pressure 132/78 Pulse Oximetry 98 Oxygen Delivery Method Room Air MDM - Dental/Oral <PHIL De La Cruz - Last Filed: 05/07/22 15:05> MDM Narrative Medical decision making narrative: Patient presents for dental pain due to suspected dental infection/fracture/decay. Patient not immunosuppressed, afebrile and well appearing with patent airway, have low suspicion for deep space infection or any concern for airway compromise. Based on history, physical, and work up no evidence of tooth fracture, avulsion, or bleeding socket. No recent facial trauma, no pus from mouth or fluctuance. Otherwise well w/no changes to vision, dysphonia, dysphagia. No evidence of RPA, JITTERBUG OPERATOR, Rusty?s angina, periapical abscess. No e/o gingival hyperplasia or concern for drug reaction. Patient was on Augmentin for the last 4 days, had her discontinue and will start on clindamycin, have her follow-up with her PCP or return in 24 hours if she has no improvement. Differential diagnosis include: cracked tooth, pulpitis, gingivitis, periodontal abscess, periapical abcess , periodontitis, bruxism, dental caries, TMJ, otitis, trigeminal neuralgia, sinusitis. Instructed patient to continue to treat pain with ibuprofen/acetaminophen until they see a dentist. Defer ABX for dental pain alone with no overt evidence of infection. Patient discharged home and will follow up with dentist. Discussed return precautions for odontogenic infections and other dental pain emergencies. Provided dental clinic contact information. Discharge Plan Departure Patient Disposition: Home Clinical Impression: Odontogenic infection of jaw, Infected dental caries, Back Pain Instructions: Tooth Abscess, DI for Tooth Decay Activity Restrictions/Additional Instructions: *You have been diagnosed with likely a dental infection that did not respond to Augmentin. I have started you on clindamycin instead. Please start this antibiotic and discontinue your prior, take this for the next 10 days. If you have worsening of this swelling, pain, or infection, please come back to the emergency department for another evaluation. Please follow-up at any dentist option the works for you. Below are a few nearby that have the lowest cost. Thank you for coming in for evaluation, there is a chance that your bacteria will not be covered on this antibiotic also, if you do not have improvement after 24 hours please come back. [facility] [address], [place] [address] Open ? Closes 5PM [facility] [address], [place] [address] Closed from 12p-1p [facility] [place] [address], [place] [address] Appointments: [place] *What to do: *Please continue to take your regular medications as directed. [x ] New medication prescriptions sent to your pharmacy: [[facility]] [ ] New medication written as a paper prescription [ ] No new medications given *Please follow up with your primary care provider in 2-3 days, call for an appointment. Let them know you were seen in the Emergency Department and that we asked that you be seen for follow-up. We will electronically transmit a record of today's note if your PCP is in our system *If you do not have a primary care provider please contact [phone] to establish care with one of the [facility] primary care providers. *Return to Emergency Department if you should have any new, worsening, or concerning symptoms, such as [fever greater than 101F, chills, worsening pain, persistent vomiting or other bothersome symptoms]. Prescriptions: New naproxen 250 mg tablet 250 mg PO BID PRN (Reason: pain) Qty: 20 0RF clindamycin HCl 150 mg capsule 450 mg PO TID 10 Days Qty: 90 0RF hydrocodone-acetaminophen 5-325 mg tablet 1 tab PO BID PRN (Reason: pain) Qty: 10 0RF No Action hydrocodone-acetaminophen [Vicodin] 5 MG/300 MG tablet 2 tab PO TIDP PRNQty: 0 cyclobenzaprine 5 MG tablet 5 mg PO TID Qty: 0 zolpidem [Ambien] 10 MG tablet 10 mg PO HSP PRNQty: 0 amitriptyline 10 MG tablet 10 mg PO HS Qty: 0 Referrals: Samreen Husain FNP-BC [Primary Care Provider] - <Reuben Odonnell MD - Last Filed: 05/16/22 21:44> Cosign ED Attending Raymondature Attestation: I was immediately available in the department for consultation. ?This documentation has been reviewed and I agree with assessment and plan. Supervised by Reuben Odonnell MD
[2022-05-07] MEDS: CLINDAMYCIN 150 MG CAPSULE 300 MG PO (14:08)
[2022-05-07] MEDS: CLINDAMYCIN 150 MG CAPSULE PO (14:08)
[2022-05-07] MEDS: DEXAMETHASONE 10 MG/ML VIAL PO (14:09)
[2022-05-07] MEDS: KETOROLAC 30 MG/ML VIAL 15 MG IM (14:10)
--- NOTE | 2022-05-07 14:35 | PC.NURSE ---
Medication hold for 15 minutes, pt denies any signs of reaction. Ambulatory independently.
== END 2022-05-07 14:30 | disposition home or self-care (01) ==
PROVIDERS: Emergency Provider Nurse Practitioner Critical Care Medicine; Family Provider Nurse Practitioner; PCP Nurse Practitioner Family
DX: M27.2 Inflammatory conditions of jaws (principal); K02.9 Dental caries, unspecified; M54.9 Dorsalgia, unspecified
CPT/HCPCS: 96372; 99283; J1100; J1885

== ENCOUNTER 2022-07-29 12:05 | Emergency (ER) | payer OTHER, MEDICAID, SELFPAY ==
[2022-07-29 12:11] VITALS: BP 131/76; PULSE 89; RESP 16; TEMP 36.3; O2SAT 99; BMI 32.4
--- NOTE | 2022-07-29 12:27 | ED.DENTAL ---
HPI - Dental/Oral <Shanelle Nelson PA-C - Last Filed: 07/31/22 10:46> General Chief complaint: Dental/Oral Stated complaint: Mouth pain Time Seen by Provider: 07/29/22 12:15 Mode of arrival: Ambulatory History of Present Illness HPI Narrative: Patient is a 41-year-old female presenting for evaluation of right sided lower molar tooth pain. She reports that she has had trouble with this tooth since last May. She says that due to insurance issues, she was not able to see her dentist until 4 months ago with an appointment tomorrow to have this tooth pulled. She says that she has followed up with her primary care provider due to recent swelling of her cheek around her right tooth in the beginning of July with Augmentin. She says that this did not work for her infection, she tried clindamycin next with no improvement, followed by cefdinir. She does reports that as of last night, she had no swelling in her lower jaw. She presents today with acutely swollen right lower cheek with tenderness to palpation. She does report some retention of saliva on the right side, but reports she is able to swallow food easily. She says that her right ear feels swollen. She reports regular chills always. She reports that last night, she had no swelling while continuing her cefdinir treatment, but this morning she says that the swelling appeared in her right lower jaw with acute tenderness to palpation. She denies neck swelling. She reports that she takes cyclobenzaprine, quetiapine and hydrocodone regularly. She denies allergies to antibiotics. Related Data Home Medications Medication Instructions Recorded Confirmed hydrocodone 5 mg-acetaminophen 300 2 tab PO TIDP PRN ##0 02/14/16 10/27/21 mg tablet (Vicodin) cyclobenzaprine 5 mg tablet 5 mg PO TID ##0 03/15/16 10/27/21 zolpidem 10 mg tablet (Ambien) 10 mg PO HSP PRN ##0 07/19/16 10/27/21 amitriptyline 10 mg tablet 10 mg PO HS ##0 07/15/17 10/27/21 Previous Rx's Medication Instructions Recorded hydrocodone 5 mg-acetaminophen 325 1 tab PO BID PRN pain #10 tabs 05/07/22 mg tablet naproxen 250 mg tablet 250 mg PO BID PRN pain #20 tabs 05/07/22 penicillin V potassium 500 mg 500 mg PO TID 7 days #21 tabs 07/29/22 tablet Allergies Allergy/AdvReac Type Severity Reaction Status Date / Time ibuprofen [IBUPROFEN] Allergy Severe HIVES Verified 05/07/22 13:43 tramadol [TRAMADOL] Allergy Intermediate Hives Verified 07/29/22 12:13 Review of Systems <Shanelle Nelson PA-C - Last Filed: 07/31/22 10:46> Review of Systems Narrative: Per HPI Patient History <Shanelle Nelson PA-C - Last Filed: 07/31/22 10:46> Social History Smoking Status: Current every day smoker Smoking Status: Current every day smoker tobacco type: vaping alcohol intake frequency: holidays/special occasions only Substance Use Type: does not use Exam <RUTH Betts Last Filed: 07/31/22 10:46> Narrative Exam Narrative: General: Well-developed well-nourished 41-year-old patient in no acute distress Mouth: Right lower molar has blackening of the base, with no acute swelling inferior gum. There is acute pain on palpation between outer cheek and inner cheek, with no loculations palpated or expression of exudate noted, but palpable edema in the anterolateral aspect. Uvula is midline, pharynx has no erythema Lymph nodes: Some anterior cervical lymphadenopathy on the right side, no neck swelling or erythema over neck. Initial Vital Signs Initial Vital Signs: Vital Signs Temperature 97.3 F L 07/29/22 12:11 Pulse Rate 89 07/29/22 12:11 Respiratory Rate 16 07/29/22 12:11 Blood Pressure 131/76 07/29/22 12:11 Pulse Oximetry 99 07/29/22 12:11 Oxygen Delivery Method Room Air 07/29/22 12:11 <Bea Puentes DO - Last Filed: 08/02/22 07:01> Initial Vital Signs Initial Vital Signs: Vital Signs Temperature 97.3 F L 07/29/22 12:11 Pulse Rate 89 07/29/22 12:11 Respiratory Rate 16 07/29/22 12:11 Blood Pressure 131/76 07/29/22 12:11 Pulse Oximetry 99 07/29/22 12:11 Oxygen Delivery Method Room Air 07/29/22 12:11 Course <Shanelle Nelson PA-C - Last Filed: 07/31/22 10:46> Vital Signs Vital signs: Vital Signs - 8 hr 07/29/22 12:11 Temperature 97.3 F L Pulse Rate 89 Respiratory Rate 16 Blood Pressure 131/76 Pulse Oximetry 99 Oxygen Delivery Method Room Air <Bea Puentes DO - Last Filed: 08/02/22 07:01> Vital Signs Vital signs: Vital Signs - 8 hr 07/29/22 12:11 Temperature 97.3 F L Pulse Rate 89 Respiratory Rate 16 Blood Pressure 131/76 Pulse Oximetry 99 Oxygen Delivery Method Room Air Discharge Plan Departure Patient Disposition: Home Clinical Impression: Cellulitis of oral soft tissues Activity Restrictions/Additional Instructions: You were diagnosed today with a infection the mouth likely secondary to lower right molar tooth decay. I recommend you follow up with your appointment with the dentist tomorrow to have this tooth evaluated for need for pulling. I will prescribe penicillin V K for you as Augmentin, clindamycin, and cefdinir treatments seemed to have failed. You may continue discussion with dentist evaluation of whether this treatment should be continued after getting pulled. For comfort, you may use ibuprofen, and warm packs. We discussed conditions necessitating return and further evaluation including neck swelling, fever and chills, inability to handle secretions, or difficulty breathing which may indicate worsening infection. Prescriptions: New penicillin V potassium 500 mg tablet 500 mg PO TID 7 Days Qty: 21 0RF No Action hydrocodone-acetaminophen [Vicodin] 5 MG/300 MG tablet 2 tab PO TIDP PRNQty: 0 cyclobenzaprine 5 MG tablet 5 mg PO TID Qty: 0 zolpidem [Ambien] 10 MG tablet 10 mg PO HSP PRNQty: 0 amitriptyline 10 MG tablet 10 mg PO HS Qty: 0 naproxen 250 mg tablet 250 mg PO BID PRN (Reason: pain) Qty: 20 0RF hydrocodone-acetaminophen 5-325 mg tablet 1 tab PO BID PRN (Reason: pain) Qty: 10 0RF Referrals: Samreen Husain, ARI-BC [Primary Care Provider] - Stand Alone Forms: Patient Portal/API <DO Roverto Rudd Last Filed: 08/02/22 07:01> Cosign ED Attending Cosignature Attestation: I was immediately available in the department for consultation. Documentation has been reviewed.
== END 2022-07-29 12:51 | disposition home or self-care (01) ==
PROVIDERS: Emergency Provider Physician Assistant; Family Provider Nurse Practitioner; PCP Nurse Practitioner Family
DX: K12.2 Cellulitis and abscess of mouth (principal); F17.200 Nicotine dependence, unspecified, uncomplicated
CPT/HCPCS: 99281

== ENCOUNTER → 2023-01-23 08:43 | Outpatient (CLI) | payer OTHER, SELFPAY ==
--- NOTE | 2023-01-23 | DI.US.S_ITS ---
PROCEDURE: US ABDOMEN LIMITED INDICATIONS: Abnormal results of liver function studies TECHNIQUE: Real-time scanning was performed of the abdominal and retroperitoneal organs, with image documentation. COMPARISON: None. FINDINGS: Liver: Increased echogenicity of the liver, consistent with fatty infiltration. No patent masses are seen. Focal fatty sparing adjacent to the gallbladder. The liver is normal in size. Gallbladder: Within normal limits. Biliary ducts: Not well seen but grossly within normal limits. No intrahepatic biliary ductal dilatation. The common bile duct is not well seen. Pancreas: Visualized portions of the pancreas are sonographically normal. IMPRESSION: Increased hepatic echogenicity noted most commonly related to hepatic steatosis but other sources of hepatocellular disease or hepatic cirrhosis cannot be excluded. Recommend clinical correlation. Dictated by: Buster Darnell M.D. on 01/23/2023 at 10:33 Approved by: Buster Darnell M.D. on 01/23/2023 at 10:34
== END ==
PROVIDERS: Family Provider Nurse Practitioner; PCP Nurse Practitioner Family; Referring Provider Nurse Practitioner Family; Visit Provider Nurse Practitioner Family
DX: R94.5 Abnormal results of liver function studies (principal)
CPT/HCPCS: 76705

== ENCOUNTER → 2023-03-09 13:28 | Outpatient (CLI) | payer OTHER, SELFPAY | PROVIDERS: Family Provider Nurse Practitioner; PCP Nurse Practitioner Family; Visit Provider Nurse Practitioner Family | DX: R10.9 Unspecified abdominal pain (principal) | CPT/HCPCS: 87086 ==

== ENCOUNTER → 2023-05-28 11:07 | Outpatient (CLI) | payer OTHER, SELFPAY ==
[2023-05-28 12:55] LABS: Influenza A - CEPHEID Flu A NEGATIVE (NEGATIVE); Influenza B - CEPHEID Flu B NEGATIVE (NEGATIVE); Respiratory Syncytial Virus Negative (Negative)
[2023-05-28 12:56] LABS: COVID-19 CEPHEID 4-PLEX PCR Negative (Negative)
== END ==
PROVIDERS: Family Provider Nurse Practitioner; PCP Nurse Practitioner Family; Visit Provider Physician Assistant
DX: J02.9 Acute pharyngitis, unspecified (principal); R05.1 Acute cough
CPT/HCPCS: 0241U; 87070; 87077; 87147

== ENCOUNTER 2024-11-16 11:48 | Emergency (ER) | payer OTHER, SELFPAY ==
[2024-11-16 12:54] VITALS: BP 138/81; PULSE 81; RESP 17; TEMP 36.3; O2SAT 100; BMI 30.3
== END 2024-11-16 17:40 | disposition left against medical advice (07) ==
PROVIDERS: Emergency Provider Family Medicine; Family Provider Nurse Practitioner; PCP Nurse Practitioner Family
DX: R47.9 Unspecified speech disturbances (principal); Z53.21 Procedure and treatment not carried out due to patient leaving prior to being seen by health care provider
CPT/HCPCS: 82962; 99281